=== PATIENT | female | born 1955 | race Caucasian/White ===

== ENCOUNTER 2020-10-11 09:09 | Outpatient (REF) | payer OTHER, SELFPAY | END 2020-10-11 09:10 | disposition home or self-care (01) | LOC: HO.LAB 09:09 | PROVIDERS: Visit Provider Internal Medicine | DX: Z20.822 Contact with and (suspected) exposure to COVID-19 (principal) | CPT/HCPCS: 36415; C9803; U0003; U0005 ==

== ENCOUNTER 2022-10-09 09:16 | Outpatient (REF) | payer MEDICARE, SELFPAY ==
--- NOTE | ~2022-10-09 | XR_ITS ---
EXAMINATION: XR CHEST CLINICAL INFORMATION: Cough for 6 weeks. Rule out pneumonia. COMPARISON: 09/04/2013. TECHNIQUE: 2 views of the chest were obtained. FINDINGS: No significant abnormality is noted involving the heart, lungs, mediastinum, or soft tissues. Mild thoracic levocurvature. No change in probable bone island or calcified granuloma projecting over the lung bases posteriorly. XR/XR chest 2V IMPRESSION: Unremarkable examination.
== END 2022-10-09 09:17 | disposition home or self-care (01) ==
LOC: HO.XRAY 09:16
PROVIDERS: PCP Internal Medicine; Visit Provider Internal Medicine
DX: R05.9 Cough, unspecified (principal)
CPT/HCPCS: 71046

== ENCOUNTER 2023-05-10 10:50 | Outpatient (AMB) | payer MEDICARE, SELFPAY ==
--- NOTE | 2023-05-10 11:00 | AM.OFFWIN_ITS ---
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 cloudy ur ine, odor, urge to urinate often. Allergies No Known Allergies Allergy (Verified 05/10/23 11:10) Do you need a note to return to daycare/school/sports/work: No HPI HPI Comments History of Present Illness Details 67-year-old female presents for concern of UTI. Experiencing increased frequency cloudiness in order to urine denies fevers chills or back pain Review of Systems Const All systems reviewed & are unremarkable except as noted in HPI and below Details: Cloudy urine, ordered urine Reports urinary urgency Physical Exam Vital Signs: Last Vital Signs Pulse 74 05/10/23 11:09 BP 124/80 05/10/23 11:09 Pulse Ox 99 05/10/23 11:09 Oxygen Delivery Method Room Air 05/10/23 11:09 BMI result Body Mass Index 29.2 GI Inspection: Yes normal to inspection Palpation (GI): Soft to palpation and nontender General: Yes no CVA tenderness Back/Spine/Pelvis Back: no CVA tenderness Results AMB Urinalysis, Automated UA Leukoctes 70 Verito/uL Last Edit by RAJIV Cool on 05/10/23 11:1 8 UA Nitrite Negative Last Edit by RAJIV Cool on 05/10/23 11:18 UA Urobilinogen 0.2 mg/dL Last Edit by RAJIV Cool on 05/10/23 11:18 UA Protein 0 mg/dL Last Edit by RAJIV Cool on 05/10/23 11:18 UA pH 5.5 Last Edit by RAJIV Cool on 05/10/23 11:18 UA Blood 25 Per/uL Last Edit by RAJIV Cool on 05/10/23 11:18 UA Specific Laurel 1.015 Last Edit by RAJIV Cool on 05/10/23 11:18 UA Ketone Negative Last Edit by RAJIV Cool on 05/10/23 11:18 UA Bilirubin 0 mg/dL Last Edit by RAJIV Cool on 05/10/23 11:18 UA Glucose 0 mg/dL Last Edit by RAJIV Cool on 05/10/23 11:18 Assessment & Plan Assessment & Plan (1) UTI (urinary tract infection): Code(s): N39.0 - Urinary tract infection, site not specified Qualifiers: Urinary tract infection type: acute cystitis Hematuria presence: without hematuria Qualified Code(s): N30.00 - Acute cystitis without hematuria Plan: Signs and symptoms consistent UTI urinalysis shows 1+ leuks and 1+ blood will treat with Keflex. No CVA tenderness abdominal tenderness on exam. Discharge instructions, follow up and treatment are discussed with patient in my usual fashion. Alternatives in treatment are also discussed. The patient will return for worsening symptoms or as needed. Advised that any labs/imaging ordered will be followed up on and contact made if further treatment needed. Counseled that patient's condition may require further evaluation and/or treatment. Symptoms of concern for worsening disorder discussed in detail in my customary manner. Patient does verbalize understanding of the plan, there are no apparent barriers to communication. The patient is given the opportunity to ask questions and have them answered to his/her satisfaction Medications: New cephalexin 500 mg PO BID 10 caps 0RF 5 days Patient Instructions: You was seen and evaluated in the urgent care for UTI symptoms. Urinalysis was performed and was consistent with urinary tract infection. Prescribed an antibiotic please take as directed. Please return to the emergency department her urgent care if you experience any new or worsening symptoms such as fever, back pain, worsening urinary symptoms, any concerns of assignments above. Coding Level of Care Code New Pt Level 4 (39270) Diagnoses Acute cystitis without hematuria N30.00 Urinary tract infection type: acute cystitis Hematuria presence: without hematuria
[2023-05-10 11:09] VITALS: BP 124/80; PULSE 74; O2SAT 99; BMI 29.2
== END 2023-05-10 11:19 | disposition home or self-care (01) ==
PROVIDERS: PCP Internal Medicine; Visit Provider Physician Assistant
DX: N30.00 Acute cystitis without hematuria (principal); R35.0 Frequency of micturition
CPT/HCPCS: 81003; 99204

== ENCOUNTER 2023-09-04 09:15 | Outpatient (AMB) | payer MEDICARE, SELFPAY ==
[2023-09-04 10:14] VITALS: BP 128/76; PULSE 76; TEMP 36.6; O2SAT 96; BMI 29.5
--- NOTE | 2023-09-04 10:14 | MHC.OFFWIV ---
Intake Vital Signs 09/04/23 10:14 Height 5 ft 4 in Weight 172 lb BMI 29.5 BP 128/76 Blood Pressure Location Lt brachial Position Sitting Pulse 76 Pulse Source Pulse Oximeter Temp 97.9 F Temp Source Oral Pulse Oximetry (%) 96 Oxygen Delivery Method Room Air Intake Visit Reasons: EP cough congestion sinus pain [id number] Intake Note: pt is here for c.o cough, congestion, and possible sinus infection since sundays Patient Tobacco Use Status: Never used Tobacco Allergies No Known Allergies Allergy (Verified 09/04/23 10:15) Do you need a note to return to daycare/school/sports/work: Yes HPI HPI Comments History of Present Illness Details This is a 67-year-old female with past medical history of gastroesophageal reflux disease, hypertension hyperlipidemia presenting for evaluation of sinus pain and facial pain that she has had since Sunday. Patient denies having any fevers, chills, ear pain, difficulty swallowing, dental pain, cough or shortness of breath. Patient has taken Tylenol only without relief of her discomfort. [facility] Social History Patient Tobacco Use Status: Never used Tobacco Review of Systems Const All systems reviewed & are unremarkable except as noted in HPI and below Reports as per HPI Eyes Reports no additional complaints ENT Reports no additional complaints, Denies dental pain, Reports facial pain, Denies mouth pain, Denies nasal congestion, Reports sinus pressure and Denies sore throat Card Reports no additional complaints Resp Reports no additional complaints GI Reports no additional complaints Musc Reports no additional complaints Skin/Breast Reports system reviewed and no additional complaints, except as documented Neuro Reports no additional complaints Physical Exam Vital Signs: afebrile Const General: cooperative, healthy appearing, comfortable and no acute distress Nutritional Appearance: average body habitus Orientation/consciousness: patient oriented x3 Limitations: no limitations HEENT Head: Yes normal to inspection Ears: hearing grossly normal bilaterally, external ears normal, right TM abnormal (bulging without erythema), TM normal on the left and EAC's normal General nose exam: Normal external nose present Face and sinus: Yes normal facial exam, Yes sinuses nontender, No erythema, No edema, No sinus tenderness and No Facial tenderness on exam of face and sinuses Mouth: Normal oral and palatal mucosa present and moist mucous membranes Throat: Yes posterior oropharynx normal (There is no edema, erythema or exudates of the posterior oropharynx) and No postnasal drainage Eyes Alignment and Position: alignment normal Periorbital: periorbital findings normal Eyelids: Yes eyelids normal Conjunctivae: conjunctivae normal Sclerae: sclerae normal Corneas: corneas normal Pupils: Equal, round and reactive pupils present EOM: EOMs intact bilaterally Neck Lymphatic: no lymphadenopathy noted Resp Effort & Inspection: normal respiratory effort, able to speak in complete sentences and normal respiratory pattern Auscultation: clear to auscultation bilaterally Cardio Rate: regular rate Rhythm: regular rhythm Skin General skin exam: no rashes or lesions noted Neuro General: patient oriented x3 Cranial nerves: Yes Equal, round and reactive pupils present Psych Appearance: grossly normal Mental Status: mental status grossly normal Insight: Good insight present (Psych) Judgement: Good judgement present (Psych) Assessment & Plan Assessment & Plan (1) Acute sinusitis: Comment: Patient seen and evaluated. There is no overt facial pain noted on examination patient is afebrile at this time without taking any antipyretic medications this morning. Code(s): J01.90 - Acute sinusitis, unspecified Plan: Ibuprofen or Aleve OTC as needed and nasal sinus spray/Neti pot as tolerated. Coding Level of Care Code New Pt Level 3 (94637) Diagnoses Acute sinusitis J01.90 Time Spent (min) 20
== END 2023-09-04 10:43 | disposition home or self-care (01) ==
PROVIDERS: PCP Internal Medicine; Visit Provider Physician Assistant
DX: J01.90 Acute sinusitis, unspecified (principal)
CPT/HCPCS: 99203

== ENCOUNTER 2024-11-17 09:10 | Outpatient (REF) | payer MEDICARE, SELFPAY ==
--- OUTSIDE RECORDS SUMMARY | 2024-11-17 12:43 | XMS_ITS | Clinical Summary ---
Author Organization [facility] [place] [address] Phone Care Team Providers Care Dewaterer Operator Name Role Phone Roger Duran MD Primary Care Provider [phone] Surgical History Surgery Date Site/Laterality Comments MASTECTOMY [...] 06/10/2025 10:30 AM EDT Office Visit [facility] Hematology Oncology [address] [place] [address] Jacob De La Rosa MD [address] [place] [phone] Health Maintenance Due Date Last Done Comments [...] Name Priority Date/Time Associated Diagnosis Comments [facility] DEXA AXIAL SKELETON Routine 08/25/2022 10:12 AM EST Encounter for screening for osteoporosis from Last 3 Months or Most Recently Relevant to Health Maintenance Results * [facility] DEXA AXIAL SKELETON (08/25/2022 10:12 AM EST) Anatomical Region Laterality Modality Mammography 08/25/2022 8:59 AM EST Narrative 08/25/2022 10:[address] [facility] Diagnostic Imaging Department [address] [place] [address] Patient: ??VAL IGLESIAS ?/Age/Sex: 1955 - 66 - Unit#: ??[id number] ? Location/Status: ??SPDIMAM/REG CLI ? Mnemonic/Ordering Site: ??MAMDEXAAX/SPMAM Ordering Physician: ??LEV DELGADO MD [facility] Dexa Axial Skeleton - 08/25/[address] HISTORY: ??The [...] probability of hip fracture of 2.3%. Code 52784 Dictating Physician: ??ART CARMONA MD Electronically Signed by: ??ART CARMONA MD Dic Date/Time: ??08/25/22 1011 Sign date/Time: ??08/25/22 1012 Procedure Note Art Carmona MD - 09/14/2023 [facility] Diagnostic Imaging Department [address] [place] [address] Patient: JULIUSVAL RIVERA Denise PerezB./Age/Sex: 1955 - 66 - F Unit#: [id number] Location/Status: [facility] CLI Mnemonic[facility] Ordering Physician: LEV DELGADO MD Wendy Dexa [...] density of the femurs bilaterally is 0.874 gm/ay5lnfcc is 87% of that of young normals [...] probability of hip fracture of 2.3%. Code 42935 Dictating Physician: ART CARMONA MD Electronically Signed by: ART CARMONA MD Dic Date/Time: 08/25/22 1011 Sign date/Time: 08/25/22 1012 Lev Delgado MD IMG BI PROCEDURES Final Resu lt from Last 3 Months or Most Recently Relevant to Health Maintenance Insurance [employer] [place] [employer] Care Teams Dewaterer Operator Relationship Specialty Start Date End Date Roger Duran MD [address] [facility] [place] PCP - General Internal Medicine 01/15/18
--- OUTSIDE RECORDS SUMMARY | 2024-11-17 12:43 | XMS_ITS | Encounter Summary ---
Author Organization [facility] Address [address] [place] [address] Care Team Providers Care Assistant Director Of Financial Aid Name Role Phone Roger Duran MD Primary Care Provider [phone] Encounter Details Date Type Department Care Team (Late st Contact Info) Description 06/10/2024 10:30 AM EDT Hospital Encounter TH H[facility]ORIC ENCOUNTERS [facility] ONLY Jacob De La Rosa MD [address] [place] [phone] Social History Tobacco Use Types Packs/Day [...] stage II T2N0 invasive ductal breast cancer, [place]-positive/[place]-negative/Her2-negative, diagnosed in 2006. She underwent mastectomy. She [...] revealed a grade 3 invasive ductal carcinoma, [place]-positive/[place]-negative, Her2-negative. On 10/08/2006, she underwent a right [...] denied new medications. She was seen by [facility]. A biopsy reportedly was non-diagnostic. A topical steroid provided relief. She went to [place] to see a power truck driver for a second opinion and they recommended [...] lessened considerably. The rash resolved following her residential. She is off Zyrtec. She developed a [...] . 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 She is active and exercises at the [employer]. Review of systems: The remainder of a [...] stage II T2N0 invasive ductal breast cancer, [place]-positive/[place]-negative/Her2-negative. She underwent mastectomy. She completed adjuvant chemotherapy [...] relieved by prednisone. Repeat patch testing in [place] in 2015 showed multiple work-related chemical allergies and she has avoided exposure by minimizing scrubbing. The rash resolved after residential. She is compliant with self exams and left MMGs. There is no strong clinical evidence of recurrent breast cancer. She has osteopenia and takes calcium and vitamin D supplementation. documented in this encounter Plan of Treatment Upcoming Encounters Date Type Department Care Team (Late st Contact Info) Description 06/10/2025 10:30 AM EDT Office Visit [facility] Hematology Oncology [address] [place] [phone] Jacob De La Rosa MD [address] [place] [address] documented as of this encounter Visit Diagnoses Not on filedocumented in this encounter Care Teams Assistant Director Of Financial Aid Relationship Specialty Start Date End Date Roger Duran MD [address] [place] [address] PCP - General Internal Medicine 01/15/18 documented as of this encounter
--- OUTSIDE RECORDS SUMMARY | 2024-11-17 12:43 | XMS_ITS | Clinical Summary ---
Author Organization [facility] Address [address] [place] [address] Care Team Providers Care Resaw Feeder Name Role Phone Roger Duran MD Primary Care Provider [phone] Allergies No known active allergies Medications Medication [...] age to complete this topic Care Teams Resaw Feeder Relationship Specialty Start Date End Date Roger Duran MD [address] [place] [address] PCP - General Internal Medicine 01/10/18
[2024-11-17 13:45] LABS: Appearance Urine Cloudy; Color Urine Yellow; Glucose Urine UA Negative (Negative); Leukocyte Esterase Urine Moderate (2+) (Negative); Nitrite Urine Positive (Negative); PH 5.5 (5.0-9.0); Specific Gravity - Urine 1.025 (1.005-1.025); UMIC TRIGGER UACC YES; Urine Blood Moderate (2+) (Negative); Urine Ketones Negative (Negative); Urine Protein 30 (1+) mg/dL (Neg-Trace)
[2024-11-17 13:49] LABS: Bacteria Urine 4+ (None Seen); Hyaline Casts Urine 0-2 /LPF (0-2); RBC Urine >20 /HPF (0-2); Squamous Epithelial Cell Urine 0-2 /HPF (0-2); UACC Culture Trigger YES; WBC Urine >50 /HPF (0-5)
== END 2024-11-17 09:11 | disposition home or self-care (01) ==
LOC: HO.LAB 09:10
PROVIDERS: Nurse Practitioner Family; PCP Internal Medicine
DX: N30.90 Cystitis, unspecified without hematuria (principal)
CPT/HCPCS: 81001; 81003; 87086; 87088; 87186; 99212

== ENCOUNTER 2024-11-17 09:10 | Outpatient (AMB) | payer MEDICARE, SELFPAY ==
--- OUTSIDE RECORDS SUMMARY | 2024-11-17 10:10 | XMS_ITS | Clinical Summary ---
Author Organization [facility] [place] [place] [address] Phone Care Team Providers Care Retail Wireless Sales Representative Name Role Phone Roger Duran MD Primary Care Provider [phone] Surgical History Surgery Date Site/Laterality Comments MASTECTOMY PROCEDURE:MASTECTOMY TONSILLECTOMY PROCEDURE:TONSILLECTOMY Medical History Medical History Date Comments Breast cancer DX:Breast cancer (HCC) High blood pressure DX:High bloo d pressure Social History Tobacco Use Types Packs/Day Years Used Date Smoking Tobacco: Never Smokeless Tobacco: Never Alcohol Use Standard Drinks/Week Comments Yes 0 (1 standard drink = 0.6 oz pur e alcohol) Comments Unknown Sex and Gender Information Value Date Recorded Sex Assigned at Not on file Legal Sex Female 8:48 AM EST Gender Identity Not on file Sexual Orientation Not on file Obstetrics History Last Filed Vital Signs Vital Sign Reading [...] Mass Index 29.29 10/20/2021 10:30 AM EST Plan of Treatment Upcoming Encounters Date Type Department Care Team (Late st Contact Info) Description 06/10/2025 10:30 AM EDT Office Visit [facility] Hematology Oncology [address] [place] [address] Jacob De La Rosa MD [address] [place] [phone] Health Maintenance Due Date Last Done Comments Breast Cancer Screening 1955 COVID-19 Vaccine (#1) 1961 DTaP,Tdap,and Td Vaccines (1 - Tdap) 11/02/1975 Pneumococcal Vaccine: 50+ Ye ars (1 of 2 - PCV) 11/02/1975 Zoster Vaccines (1 of 2) 11/02/1975 Colorectal Cancer Screening: Colonoscopy 07/20/2022 Depression Screening 07/20/2022 Falls Risk Assessment 07/20/2022 Hepatitis C Screening 07/20/2022 Medicare Annual Wellness Visit 07/20/2022 Social Influencers of Health Screening 07/20/2022 Influenza Vaccine (#1) 2024 RSV Immunization Adult Patie nts (1 - 1-dose 75+ series) 11/02/2031 Osteoporosis Screening (Bone Density Screening) 08/25/2032 08/25/2022 HIB Vaccines Aged Out No longer eligi ble based on patient's age to complete this topic HPV Vaccines Aged Out No longer eligi ble based on patient's age to complete this topic Hepatitis A Vaccines Aged Out No long er eligible based on patient's age to complete this topic Hepatitis B Vaccines Aged Out No long er eligible based on patient's age to complete this topic IPV Vaccines Aged Out No longer eligi ble based on patient's age to complete this topic MMR Vaccines Aged Out No longer eligi ble based on patient's age to complete this topic Meningococcal ACWY Vaccine Aged Out N o longer eligible based on patient's age to complete this topic Meningococcal B Vacine Aged Out No lo nger eligible based on patient's age to complete this topic RSV Immunization Patients Un nakia 20 months Aged Out No longer eligible b ased on patient's age to complete this topic Varicella Vaccines Aged Out No longer eligible based on patient's age to complete this topic Procedures Procedure Name Priority Date/Time Associated Diagnosis Comments [facility] DEXA AXIAL SKELETON Routine 08/25/2022 10:12 AM EST Encounter for screening for osteoporosis from Last 3 Months or Most Recently Relevant to Health Maintenance Results * [facility] DEXA AXIAL SKELETON (08/25/2022 10:12 AM EST) Anatomical Region Laterality Modality Mammography 08/25/2022 8:59 AM EST Narrative 08/25/2022 10:12 AM EST [facility] Diagnostic Imaging Department [address] [place] [address] Patient: ??VAL IGLESIAS ?/Age/Sex: 1955 - 66 - Unit#: ??[id number] ? Location/Status: ??SPDIMAM/REG CLI ? Mnemonic/Ordering Site: ??MAMDEXAAX/SPMAM Ordering Physician: ??LEV DELGADO MD [facility] Dexa Axial Skeleton - 08/25/22950 HISTORY: ??The patient is a 66-year-old postmenopausal female with clinical concern for metabolic bone disease. FINDINGS: ??Dual energy x-ray absorptiometry of the lumbar spine and femurs is performed. The mean bone mineral density at L1-L4 is 0.941 gm/cm2 which is 80% of that of young normals and 94% of that of age matched controls. This yields a T-score of -2.0 and a Z-score of -0.5 which is diagnostic of osteopenia. The mean bone mineral density of the femurs bilaterally is 0.874 gm/cm2 which is 87% of that of young normals and 101% of that of age matched controls. ??This yields a T-score of -1.1 and a Z-score of 0.1 which is diagnostic of osteopenia. The T-score of the right femoral neck is -1.8 and that of the left femoral neck is -1.8 which is diagnostic of osteopenia. IMPRESSION: 1. Osteopenia. ??There has been an increase of 4.1% in bone mineral density in the lumbar spine since the prior examination of 05/11/2016. ??There has been a decrease of 1.9% in bone mineral density in the right femur and a decrease of 1.5% in bone mineral density in the left femur. 2. FRAX analysis yields a 10-year probability of major osteoporotic fracture of 16.4% and a 10-year probability of hip fracture of 2.3%. Code 54575 Dictating Physician: ??ART CARMONA MD Electronically Signed by: ??ART CARMONA MD Dic Date/Time: ??08/25/22 1011 Sign date/Time: ??08/25/22 1012 Procedure Note Art Carmona MD - 09/14/2023 [facility] Diagnostic Imaging Department [address] [place] [address] Patient: JULIUSVAL RIVERA Denise PerezB./Age/Sex: 1955 - 66 - F Unit#: [id number] Location/Status: [facility] CLI [facility] Ordering Physician: LEV DELGADO MD [facility] Dexa Axial Skeleton - 08/25/22950 HISTORY: The patient is a 66-year-old postmenopausal female withclinical concern for metabolic bone disease. FINDINGS: Dual energy x-ray absorptiometry of the lumbar spine and femursis performed. The mean bone mineral density at L1-L4 is 0.941 gm/cm2 which is80% of that of young normals and 94% of that of age matched controls. Thisyields a T-score of -2.0 and a Z-score of -0.5 which is diagnostic of osteopenia. The mean bone mineral density of the femurs bilaterally is 0.874 gm/kf1ezsve is 87% of that of young normals and 101% of that of age matched controls.This yields a T-score of -1.1 and a Z-score of 0.1 which is diagnostic ofosteopenia. The T-score of the right femoral neck is -1.8 and that of the left femoralneck is -1.8 which is diagnostic of osteopenia. IMPRESSION: 1. Osteopenia. There has been an increase of 4.1% in bone mineral densityin the lumbar spine since the prior examination of 05/11/2016. There has marnie decrease of 1.9% in bone mineral density in the right femur and a decreaseof 1.5% in bone mineral density in the left femur. 2. FRAX analysis yields a 10-year probability of major osteoporoticfracture of 16.4% and a 10-year probability of hip fracture of 2.3%. Code 52890 Dictating Physician: ART CARMONA MD Electronically Signed by: ART CARMONA MD Dic Date/Time: 08/25/22 1011 Sign date/Time: 08/25/22 1012 Lev Delgado MD IMG BI PROCEDURES Final Resu lt from Last 3 Months or Most Recently Relevant to Health Maintenance Insurance [employer] [place] [employer] Care Teams Retail Wireless Sales Representative Relationship Specialty Start Date End Date Roger Duran MD [address] [facility] [place] PCP - General Internal Medicine 01/15/18
--- OUTSIDE RECORDS SUMMARY | 2024-11-17 10:10 | XMS_ITS | Encounter Summary ---
Author Organization [facility] Address [address] [place] [address] Care Team Providers Care Construction Plant Operator Name Role Phone Roger Duran MD Primary Care Provider [phone] Encounter Details Date Type Department Care Team (Late st Contact Info) Description 06/10/2024 10:30 AM EDT Hospital Encounter TH HISTORIC ENCOUNTERS [facility] ONLY Jacob De La Rosa MD [address] [place] [phone] Social History Tobacco Use Types Packs/Day [...] stage II T2N0 invasive ductal breast cancer, [place]-positive/[place]-negative/Her2-negative, diagnosed in 2006. She underwent mastectomy. She [...] revealed a grade 3 invasive ductal carcinoma, ER-positive/[place]-negative, Her2-negative. On 10/08/2006, she underwent a right [...] denied new medications. She was seen by [facility]. A biopsy reportedly was non-diagnostic. A topical steroid provided relief. She went to [place] to see a fountain server for a second opinion and they recommended [...] lessened considerably. The rash resolved following her intermediate. She is off Zyrtec. She developed a [...] . 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 She is active and exercises at the [employer]. Review of systems: The remainder of a [...] stage II T2N0 invasive ductal breast cancer, ER-positive/[place]-negative/Her2-negative. She underwent mastectomy. She completed adjuvant chemotherapy [...] relieved by prednisone. Repeat patch testing in [place] in 2015 showed multiple work-related chemical allergies and she has avoided exposure by minimizing scrubbing. The rash resolved after intermediate. She is compliant with self exams and left MMGs. There is no strong clinical evidence of recurrent breast cancer. She has osteopenia and takes calcium and vitamin D supplementation. documented in this encounter Plan of Treatment Upcoming Encounters Date Type Department Care Team (Late st Contact Info) Description 06/10/2025 10:30 AM EDT Office Visit [facility] Hematology Oncology [address] [place] [phone] Jacob De La Rosa MD [address] [place] [address] documented as of this encounter Visit Diagnoses Not on filedocumented in this encounter Care Teams Construction Plant Operator Relationship Specialty Start Date End Date Roger Duran MD [address] [place] [address] PCP - General Internal Medicine 01/15/18 documented as of this encounter
--- OUTSIDE RECORDS SUMMARY | 2024-11-17 10:10 | XMS_ITS | Clinical Summary ---
Author Organization [facility] Address [address] [place] [address] Care Team Providers Care Logistics Tech Name Role Phone Roger Duran MD Primary Care Provider [phone] Allergies No known active allergies Medications Medication Sig Dispensed Refills Start Date End Date Status omeprazole (PRILOSEC) 20 MG capsule Take 1 capsule (20 mg total) by mouth daily. 0 Active venlafaxine (EFFEXOR) 75 MG tablet Take 1 tablet (75 mg total) by mouth 2 (two) times a day. 0 Active atenolol (TENORMIN) tablet 50 mg Take 1 tablet (50 mg total) by mouth daily. 0 Active simvastatin (ZOCOR) 80 MG tablet Take 1 tablet (80 mg total) by mouth every night at bedtime. 0 Active rosuvastatin (CRESTOR) tablet 40 mg Take 1 tablet (40 mg total) by mouth daily. 0 08/15/2021 Active Active Problems Problem Noted Date Diagnosed Date Malignant neoplasm of centra l portion of right breast in female, estrogen receptor positive 01/11/2018 Social History Tobacco Use Types Packs/Day Years Used Date Smoking Tobacco: Never Smokeless Tobacco: Never Alcohol Use Standard Drinks/Week Comments Yes 0 (1 standard drink = 0.6 oz pur e alcohol) Sex and Gender Information Value Date Recorded Sex Assigned at Not on file Gender Identity Not on file Sexual Orientation Not on file Job Start Date Occupation Industry Not on file Not on file Not on file Last Filed Vital Signs Vital Sign Reading Time Taken Comments Blood Pressure 160/87 06/10/2024 11:01 AM EDT Pulse 64 06/10/2024 11:01 AM EDT Temperature 36.4 ??C (97.6 ??F) 06/10/2024 11:01 AM E DT Respiratory Rate - - Oxygen Saturation 100% 06/10/2024 11:01 AM EDT Inhaled Oxygen Concentration - - Weight 70.3 kg (155 lb) 06/10/2024 11:01 AM EDT Height 154.9 cm (5' 1 ) 10/20/2021 10:30 AM EST Body Mass Index 29.29 10/20/2021 10:30 AM EST Plan of Treatment Health Maintenance Due Date Last Done Comments Hepatitis C Screening 1955 COVID-19 Vaccine (#1) 1961 Pneumococcal Vaccine (1 of 2 - PCV) 1962 Depression Screening 1968 BMI Counseling 1974 Preventative Health Evaluation 1974 DTap / Tdap / Td (1 - Tdap) 11/02/1975 Shingrix-Zoster Vaccine (1 of 2) 11/02/1975 Colon Cancer Screening (Colonoscopy) 2001 Breast Cancer Screening (Mammogram) 2006 Fall Risk Assessment 2021 Osteoporosis Screening (DEXA Scan) 2021 Influenza Vaccine (#1) 2024 RSV Adult > 60+ Yrs or Pregn ant (1 - 1-dose 75+ series) 11/02/2031 Hepatitis B Vaccines Aged Out No long er eligible based on patient's age to complete this topic RSV Ped < 20 months Aged Out No longe r eligible based on patient's age to complete this topic Care Teams Logistics Tech Relationship Specialty Start Date End Date Roger Duran MD [address] [place] [address] PCP - General Internal Medicine 01/10/18
[2024-11-17 10:24] VITALS: BP 120/88; PULSE 80; TEMP 36.7; O2SAT 95
--- NOTE | 2024-11-17 10:24 | AM.OFFWIN_ITS ---
Intake Vital Signs 11/17/24 10:24 Weight 142 lb BP 120/88 Blood Pressure Location Rt brachial Position Sitting Pulse 80 Pulse Source Pulse Oximeter Temp 98.1 F Temp Source Oral Pulse Oximetry (%) 95 Oxygen Delivery Method Room Air Intake Visit Reasons: EP UTI? Intake Note: Patient here for frequent urination, foul odor, cloudy urine that started last week. Patient Tobacco Use Status: Never used Tobacco Allergies No Known Allergies Allergy (Verified 11/17/24 10:30) Do you need a note to return to daycare/school/sports/work: No HPI HPI Comments History of Present Illness Details 69 y/o female patient who presents to [facility] in clinic with c/o Urinary symptoms. C/o Urinary Urgency, Dysuria and frequency for ~ 1 week. [facility] Medical History (Updated 11/17/24 @ 10:45 by Marina Moreno NP) Cystitis Social History Patient Tobacco Use Status: Never used Tobacco Review of Systems Const All systems reviewed & are unremarkable except as noted in HPI and below Physical Exam Vital Signs: Last Vital Signs Temp 98.1 F 11/17/24 10:24 Pulse 80 11/17/24 10:24 BP 120/88 11/17/24 10:24 Pulse Ox 95 11/17/24 10:24 Oxygen Delivery Method Room Air 11/17/24 10:24 Const General: no acute distress Nutritional Appearance: well nourished Orientation/consciousness: patient oriented x3 Other: Pelvic exam deferred. General: Yes no CVA tenderness Back/Spine/Pelvis Back: no CVA tenderness Neuro General: patient oriented x3, gait normal and moves all extremities Psych Speech and movement: Normal speech and movement present Results AMB Urinalysis, Automated UA Leukoctes 70 Verito/uL Last Edit by RAJIV Cool on 11/17/24 11:0 7 UA Nitrite Positive Last Edit by RAJIV Cool on 11/17/24 11:07 UA Urobilinogen 0.2 mg/dL Last Edit by RAJIV Cool on 11/17/24 11:07 UA Protein 30 mg/dL Last Edit by RAJIV Cool on 11/17/24 11:07 UA pH 6.0 Last Edit by RAJIV Cool on 11/17/24 11:07 UA Blood 200 Per/uL Last Edit by Zac Hayward CCM on 11/17/24 11:07 UA Specific [place] 1.025 Last Edit by Zac Hayward CCM on 11/17/24 11:07 UA Ketone Negative Last Edit by Zac Hayward [facility] on 11/17/24 11:07 UA Bilirubin 0 mg/dL Last Edit by [facility]ac Hayward [facility] on 11/17/24 11:07 UA Glucose 0 mg/dL Last Edit by Zac Hayward [facility] on 11/17/24 11:07 Results Reviewed Results Reviewed: Laboratory Last Values Urine pH (Auto) 6.0 11/17/24 11:06 Specific [place] (Auto) 1.025 11/17/24 11:06 Urine Protein (Auto) 30 mg/dL 11/17/24 11:06 Glucose (UA)(Auto) 0 mg/dL 11/17/24 11:06 Urine Ketones (Auto) Negative 11/17/24 11:06 Urine Blood (Auto) 200 Per/uL 11/17/24 11:06 Urine Nitrite (Auto) Positive 11/17/24 11:06 Urine Bilirubin (Auto) 0 mg/dL 11/17/24 11:06 Urine Urobilinogen (Auto) 0.2 mg/dL 11/17/24 11:06 Leukocyte Esterase (Auto) 70 Verito/uL 11/17/24 11:06 Assessment & Plan Assessment & Plan (1) Cystitis: Code(s): N30.90 - Cystitis, unspecified without hematuria Plan: Ordered Urinalysis and Urine Culture Ordered Ciprofloxacin 500 mg BID Hydrate well with plenty of fluids. May Take Azo for symptom relief. Orders: Orders UA CC w/rflx Micro + Cult Today N30.90 - Cystitis, unspecified without hematuria AMB Urinalysis Automated Today Z13.9 - Encounter for screening, unspecified Medications: New ciprofloxacin HCl 500 mg PO Q12H 10 tabs 0RF 5 days N30.90 - Cystitis, unspecified without hematuria Coding Level of Care Code Est Pt Level 4 (99599) Diagnoses Cystitis N30.90 Time Spent (min) 20
== END 2024-11-17 10:55 | disposition home or self-care (01) ==
PROVIDERS: PCP Internal Medicine; Visit Provider Nurse Practitioner Family
DX: N30.90 Cystitis, unspecified without hematuria (principal); Z13.9 Encounter for screening, unspecified

== ENCOUNTER 2025-06-15 09:29 | Outpatient (AMB) | payer MEDICARE, SELFPAY ==
--- OUTSIDE RECORDS SUMMARY | 2024-06-10 09:30 | XMS_ITS | Encounter Summary ---
Author Organization [facility] Address [address] [place] [address] Care Team Providers Care Career Development Coordinator/Teacher Name Role Phone Roger Duran MD Primary Care Provider [phone] Encounter Details Date Type Department Care Team (Late st Contact Info) Description 06/10/2024 10:30 AM EDT Hospital Encounter [facility] ONLY Jacob De La Rosa MD [address] [place] [phone] Social History Tobacco Use Types Packs/Day Years Used Date Smoking Tobacco: Never Smokeless Tobacco: Never Alcohol Use Standard Drinks/Week Comments Yes 0 (1 standard drink = 0.6 oz pur e alcohol) Comments Unknown Sex and Gender Information Value Date Recorded Sex Assigned at Not on file Legal Sex Female 8:48 AM EST Gender Identity Not on file Sexual Orientation Not on file documented as of this encounter Last Filed Vital Signs Vital Sign Reading Time Taken Comments Blood Pressure 160/87 06/10/2024 11:01 AM EDT Sitting Left arm Pulse 64 06/10/2024 11:01 AM EDT Temperature - - Respiratory Rate - - Oxygen Saturation - - Inhaled Oxygen Concentration - - Weight 70.3 kg (155 lb) 06/10/2024 11:0 1 AM EDT Height 154.9 cm (5' 1 ) 10/20/2021 10:3 0 AM EST Body Mass Index 29.29 10/20/2021 10:30 AM EST documented in this encounter Progress Notes * Jacob De La Rosa MD - 06/10/2024 10:45 AM EDT Diagnosis/treatment: Right-sided stage II T2N0 invasive ductal breast cancer, ER-positive/NV-negative/Her2-negative, diagnosed in 2006. She underwent mastectomy. She completed adjuvant chemotherapy with TC x 3 cycles andAC x 1 cycle. She started adjuvant tamoxifen in 02/2007 and completed 5 years. She started letrozolein 03/2012 and completed 5 years. Interval history: The patient is a 68 year old female who became aware of a nonpainful mass in the right breast. She underwent a MMG which showed a 3 cm mass in the retroareolar area on the right. On 08/29/2006, she underwent a core biopsy which revealed a grade 3 invasive ductal carcinoma, ER-positive/NV-negative, Her2-negative. On 10/08/2006, she underwent a right MRM and immediate reconstruction. The pathology showed a 3.0 cm grade 3 invasive ductal carcinoma with no LVI. All eight nodes were negative. She completed TC x 3 cycles. She was changed to AC for a 4th cycle of adjuvant chemotherapy becauseof an allergic reaction. She started tamoxifen in 02/2007. She was started on Effexor for hot flashes. She tolerated tamoxifen reasonably well despite hot flashes. She has not had menses since completing chemotherapy. She tested post-menopausal by labs in 12/2011. She tolerated letrozole reasonably well despite continued frequent hot flashes. She had disrupted sleep due to hot flashes. She remained on Effexor 75 mg, which provided benefit. She reports persistent daytime hot flashes despite no longer taking letrozole. The hot flashes lessened in frequency in 2018, worsened in 2019, but lessened again in late 2019. She remains on Effexor 75 mg. A DEXA scan in 04/2016 showed osteopenia with a T score of -2.3 in the femur. A DEXA scan in 08/2022 showed osteopenia with a T score of -2.0 in the L-spine. She takes calcium and vitamin D supplementation. She is compliant with self exams and has no concerns. She is compliant with MMGs and her last left MMG in 09/2023 was read as benign. She denies CALL, abdominal or bone pain, or a change in appetite or weight. She developed a pruritic papular rash on her forearms and hands in 03/2013. She reported that the lesions continued to appear and resolve. She denied new medications. She was seen by [facility]. A biopsy reportedly was non-diagnostic. A topical steroid provided relief. She went to [place] to see a rope tier for a second opinion and they recommended patch testing for chemicals used at work which was initially not revealing. She started methotrexate in mid-2014 and took it for 6 weeks without benefit. We held the letrozolex 1 months in 11/2014, but the rash persisted. She started Zyrtec in mid-02/2015 and the rash lessened. She had an exacerbation of the rash in 05/2015 and was started on prednisone with benefit. She was tapered off the prednisone. She underwent repeat patch testing for chemicals used at work in 2015 which showed multiple work chemical allergies. She has minimized scrubbing and gloving at work the rash lessened considerably. The rash resolved following her jail. She is off Zyrtec. She developed a cough in 08/2017. She developed an influenza infection in 09/2017. She subsequently developed a left otitis media, followed by left mastoiditis. She was treated with multiple courses ofantibiotics and prednisone. The cough was productive of abundant yellow sputum at one point; the sputum resolved following one of the courses of antibiotics. A CXR on 12/18/2017 was unremarkable. Thecough persisted but resolved in early 01/2018. . . The patient tested BRCA-1/2-negative. Family history: A sister had breast cancer at the age of 47. A paternal grandmother had breast cancer. Social history: . 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 She is active and exercises at the [employer]. Review of systems: The remainder of a 10 point review of systems was unremarkable. Physical examination: HEENT: Sclerae anicteric, normal oropharyngeal membrane. Neck: No lymphadenopathy. Lungs: Clear to auscultation. Heart: No murmurs. Breasts: No suspicious skin changes or masses bilaterally, no axillary lymphadenopathy bilaterally. Abdomen: Soft, nontender, no organomegaly or masses. Extremities: No edema. Skin: No rash. Neurologic: Normal gait. Assessment/plan: The patient is a 68 yo F who presented in 2006 with a right-sided stage II T2N0 invasive ductal breast cancer, ER-positive/NV-negative/Her2-negative. She underwent mastectomy. She completed adjuvant chemotherapy with TC x 3 cycles and AC x 1 cycle. She started adjuvant tamoxifen in 02/2007 and completed 5 years. We started extended adjuvant hormonal therapy with letrozole and the patient completed5 years. She had persistent difficulty with a rash on her forearms and hands. We held the letrozole x 1 month in 11/2014, but the rash persisted. The rash lessened on Zyrtec. She had an exacerbation in the rash in 05/2015, relieved by prednisone. Repeat patch testing in [place] in 2015 showed multiple work-related chemical allergies and she has avoided exposure by minimizing scrubbing. The rash resolved after jail. She is compliant with self exams and left MMGs. There is no strong clinical evidence of recurrent breast cancer. She has osteopenia and takes calcium and vitamin D supplementation. documented in this encounter Plan of Treatment Upcoming Encounters Date Type Department Care Team (Late st Contact Info) Description 06/10/2026 10:30 AM EDT Office Visit [facility] Hematology Oncology [address] [place] [phone] Jacob De La Rosa MD [address] [place] [phone] documented as of this encounter Visit Diagnoses Not on filedocumented in this encounter Care Teams Career Development Coordinator/Teacher Relationship Specialty Start Date End Date Roger Duran MD [address] [place] [address] PCP - General Internal Medicine 01/15/18 documented as of this encounter
--- OUTSIDE RECORDS SUMMARY | 2025-06-10 09:30 | XMS_ITS | Encounter Summary ---
Author Organization [facility] Address [address] [place] [address] Care Team Providers Care Paint Spraying Machine Operator Helper Name Role Phone Roger Duran MD Primary Care Provider [phone] Reason for Referral * Imaging (Routine) - Authorized Specialty Diagnoses / Procedures Referred By Florina t Referred To Contact Radiology Diagnoses Malignant neoplasm of central portion of right breast in female, estrogen receptor positive (CMS/HCC V24, CMS/HCC V28) Encounter for screening mammogram for malignant neoplasm of breast Procedures MG Mammo Digital Screening w Aguila Left Jacob De La Rosa MD [address] [place] [phone] Phone: tel: fax: [address] [phone] Phone: tel: Referral ID Status Reason Start Date Expiration Date V isits Requested Visits Authorized [id number] Authorized 06/10/2025 06/10/2026 1 1 Reason for Visit * Reason Comments Follow-up Encounter Details Date Type Department Care Team (Late st Contact Info) Description 06/10/2025 10:30 AM EDT Office Visit [facility] Hematology Oncology [address] [place] [phone] Jacob De La Rosa MD [address] [place] [phone] Malignant neoplasm of central portion of right breast in female, estrogen receptor positive (CMS/HCC V24, CMS/HCC V28) (Primary Dx); Encounter for screening mammogram for malignant neoplasm of breast Social History Tobacco Use Types Packs/Day Years Used Date Smoking Tobacco: Never Smokeless Tobacco: Never Tobacco Cessation:Counseling Given: Not Answered Alcohol Use Standard Drinks/Week Comments Yes 0 [...] Sign Reading Time Taken Comments Blood Pressure 123/95 06/10/2025 10:33 AM EDT Pulse 92 06/10/2025 10:33 AM EDT Temperature 36.3 C (97.4 F) 06/10/2025 10:33 AM EDT Respiratory Rate - - Oxygen Saturation 98% 06/10/2025 10:33 AM EDT Inhaled Oxygen Concentration - - Weight 64.9 kg (143 lb) 06/10/2025 10:33 AM EDT Height - - Body Mass Index 27.02 10/20/2021 10:30 AM EST documented in this encounter Progress Notes * Jacob De La Rosa MD - 06/10/2025 10:30 AM EDT Diagnosis/treatment: Right-sided stage II T2N0 invasive ductal breast cancer, ER-positive/TN-negative/Her2-negative, diagnosed in 2006. She underwent mastectomy. She completed adjuvant chemotherapy with TC x 3 cycles andAC x 1 cycle. She started adjuvant tamoxifen in 02/2007 and completed 5 years. She started letrozolein 03/2012 and completed 5 years. Interval history: The patient is a 69 year old female who became aware of a nonpainful mass in the right breast. She underwent a MMG which showed a 3 cm mass in the retroareolar area on the right. On 08/29/2006, she underwent a core biopsy which revealed a grade 3 invasive ductal carcinoma, ER-positive/TN-negative, Her2-negative. On 10/08/2006, she underwent a right [...] The hot flashes lessened in frequency in 2017, worsened in 2018, but lessened again in late 2018. She remains on Effexor 75 mg. A [...] denied new medications. She was seen by [facility]. A biopsy reportedly was non-diagnostic. A topical steroid provided relief. She went to [place] to see a endodontist for a second opinion and they recommended [...] lessened considerably. The rash resolved following her correction. She is off Zyrtec. She developed a [...] . 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 She is active and exercises at the [employer]. Review of systems: The remainder of a [...] Normal gait. Assessment/plan: The patient is a 69 yo F who presented in 2006 with a right-sided stage II T2N0 invasive ductal breast cancer, ER-positive/TN-negative/Her2-negative. She underwent mastectomy. She completed adjuvant chemotherapy [...] relieved by prednisone. Repeat patch testing in [place] in 2016 showed multiple work-related chemical allergies and she has avoided exposure by minimizing scrubbing. The rash resolved after correction. She is compliant with self exams and left MMGs. There is no strong clinical evidence of recurrent breast cancer. She has osteopenia and takes calcium and vitamin D supplementation. Visit summary: Patient is a 69-year-old female who presented to [place] [address] with a right-sized stage II breast cancer, ER-positive, HER2-negative. She underwent a mastectomy. She completed adjuvant chemotherapy withTC x 3 cycles and AC x 1 cycle. She started adjuvant tamoxifen 02/2007 and completed 5 years. We started extended adjuvant hormonal therapy letrozole and the patient completed 5 years. She is compliant with mammograms. A history and physical today revealed no new findings. documented in this encounter Plan of Treatment Upcoming Encounters Date Type Department Care Team (Late st Contact Info) Description 06/10/2026 10:30 AM EDT Office Visit [facility] Hematology Oncology [address] [place] [phone] Jacob De La Rosa MD [address] [place] [phone] Scheduled Orders Name Type Priority Associated Diagnoses Orde r Schedule MG Mammo Digital Screening w Aguila Left Imaging Routine Malignant neoplasm of central portion of right breast in female, estrogen receptor positive ([facility] V24, [facility] V28) Encounter for screening mammogram for malignant neoplasm of breast Expected: 10/09/2025, Expires: 06/10/2026 documented as of this encounter Visit Diagnoses Diagnosis Malignant neoplasm of central portion of right breast in female, estrogen receptor positive (CMS/[facility] V24, CMS/[facility] V28)- Primary Encounter for screening mammogram for malignant neoplasm of breast documented in this encounter Historical Medications * This list may reflect changes made after this encounter. atenoloL (TENORMIN) 50 mg tablet Take 1 tablet (50 mg total) by mouth 1 (one) time each day. doxycycline (VIBRAMYCIN) 100 mg capsule Take 1 capsule (100 mg total) by mouth 2 times daily. 06/07/2015 omeprazole (PriLOSEC) [address] capsule Take 1 capsule (20 mg total) by mouth 1 (one) time each day. added in this encounter Care Teams Paint Spraying Machine Operator Helper Relationship Specialty Start Date End Date Roger Duran MD [address] [place] [address] PCP - General Internal Medicine 01/15/18 documented as of this encounter
[2025-06-15 09:37] VITALS: BP 150/92; PULSE 79; RESP 18; TEMP 35.8; O2SAT 100; BMI 24.9
--- NOTE | 2025-06-15 09:37 | MHC.PC.OV ---
Vital Signs 06/15/25 09:37 Height 5 ft 4 in Weight 145 lb BMI 24.9 BP 150/92 H Blood Pressure Location Lt brachial Position Sitting Respiration 18 Pulse 79 Pulse Source Pulse Oximeter Temp 96.4 F L Temp Source Temporal Artery Scan Pulse Oximetry (%) 100 Oxygen Delivery Method Room Air Intake Visit Reasons: Request PE PROFESSOR OF ENGLISH - see comments Ssrs Developer Required: No Accompanied by: Self / Same As Patient Allergies No Known Allergies Allergy (Verified 06/15/25 09:53) Medication List - Last Reconciled 06/15/25 by MAURY Hutson atenolol 50 mg PO DAILY omeprazole 20 mg PO DAILY rosuvastatin 40 mg PO DAILY venlafaxine ER 75 mg PO DAILY Tobacco use date assessed: 06/15/25 Fall risk assessment: 1 Fall in past year Last assessed Fall Risk: 06/15/25 Dental Screening Dental Screen Date: 06/15/25 Did you have a dental visit in the last 12 months?: Yes Did you have a dental problem in the last 6 months where you did not have access to dental care?: No Was dental information given to patient?: Patient has dentist HPI Request PE PROFESSOR OF ENGLISH - see comments HPI Details Previous PCP: Dr. Duran Last visit:few months ago Last PE: same Specialist: oncologist OBGYN: Dr. Noonan affiliated with [facility] Every two years: done last year mammogram: update Past medical history: breast ca, 19 years ago, [facility] (Dr. De La Rosa) single mastectomy of right breast, chemo and has been in remission since, htn, hld, GERD Medications: Family HX: htn, hld -mother, Problem: The patient is a 69-year-old female establishing care with a new primary care provider following the shelter of her previous PCP, Dr. Duran, with whom she had her last physical a few months ago. She has a history of breast cancer diagnosed 19 years ago, treated with a right single mastectomy and chemotherapy, but no radiation. Genetic testing for the breast cancer gene was negative, and she has been in remission since. She sees an oncologist, Dr. De La Rosa, and had a visit last week. The patient has a 30-year history of hypertension, managed with atenolol 50 mg daily. Her diastolic blood pressure chronically runs high, typically in the high 80s to low 90s, despite some readings in the normal range at doctor's visits. She also has hypercholesterolemia, treated with rosuvastatin 40 mg, which was noted to be well-controlled on her last blood work. For about a month, she has experienced left mid-back pain after an incident while making her bed. The pain is described as a sharp, intermittent sensation that occurs with certain movements, which was initially a 10/10 in severity and is now a 7/10 at its worst, though it can be bothersome. The pain is localized and does not radiate, and she has found some relief with Motrin. She takes omeprazole for GERD and reports she cannot miss a dose without experiencing terrible heartburn. She has never had an upper endoscopy or colonoscopy. She also takes venlafaxine, which was prescribed for severe hot flashes during chemotherapy. Her family history is significant for a mother with hypertension and hypercholesterolemia at a young age. left mid-back : sharp pain with certain moments, 10 at the beginning, about a 7/10 now. This does not radiate. She was making her bed when she first felt the pain. [facility] Medical History (Updated 06/17/25 @ 10:08 by MAURY Hutson) GERD (gastroesophageal reflux disease) History of breast cancer HLD (hyperlipidemia) HTN (hypertension) Cystitis Surgical History (Updated 06/15/25 @ 15:46 by MAURY Hutson) History of partial mastectomy of right breast Family History Mother HLD (hyperlipidemia) HTN (hypertension) Social History Patient Tobacco Use Status: Never used Tobacco Questionnaire PHQ-9 Over the last 2 weeks, how often have you been bothered by any of the following problems? 1. Little interest or pleasure in doing things: not at all 2. Feeling down, depressed, or hopeless: not at all 3. Trouble falling or staying asleep, or sleeping too much: several days 4. Feeling tired or having little energy: several days 5. Poor appetite or overeating: not at all 6. Feeling bad about yourself - or that you are a failure or have let yourself or your family down: not at all 7. Trouble concentrating on things, such as reading the newspaper or watching television: not at all 8. Moving or speaking so slowly that other people could have noticed. Or the opposite - being so fidgety or restless that you have been moving around a lot more than usual: not at all 9. Thoughts that you would be better off or of hurting yourself in some way: not at all Total score: 2 Depression Screening Interpretation: Negative Depression Screening Done: Yes 61090 - PHQ-9 Billing: Yes Source: Developed by Drs. Yohannes Larose, Kirstie Flor, Lex Ye and colleagues, with an educational lauro from [employer] Thrive Questionnaire Date Thrive assessed: 06/15/25 I am a: Patient What is your living situation today?: I have a steady place to live Within the past 12 months, did the food you bought not last and you didn't have the money to get more?: Never true Within the past 12 months, did you worry whether your food would run out before you got money to buy more?: Never true Do you have trouble paying for medicines?: No Do you have trouble getting transportation to medical appointments?: No Do you have trouble paying your heating and electricity bill?: No Do you have trouble taking care of your child, family member or friend?: No Do you have trouble with day-to-day activities such as bathing, preparing meals, shopping, managing finances, etc.?: No Are you currently unemployed and looking for a job?: No Are you interested in more education?: No Please select the resources that you would like help with: None Currently or been in a relationship where the following occur: No concerns reported THRIVE Score: 0 AUDIT C Alcohol Use Questionnaire (AUDIT-C) 1. How often do you have a drink containing alcohol?: 4 or more times a week 2. How many drinks containing alcohol do you have on a typical day when you are drinking?: 1 or 2 3. How often do you have six or more drinks on one occasion?: Never Total Score: 4 FELICITA-7 AMB Questionnaire FELICITA-7 Date FELICITA - 7 assessed: 06/15/25 Feeling nervous, anxious, or on edge: 1 = Several days Not being able to stop or control worryin = Several days Worrying too much about different things: 1 = Several days Trouble relaxin = Not at all Being so restless that it is hard to sit still: 0 = Not at all Becoming easily annoyed or irritable: 0 = Not at all Feeling afraid as if something awful might happen: 0 = Not at all Total FELICITA-7 score (0-4 normal; 5-9 mild; 10-14 moderate; 15-21 severe): 3 Source: Developed by Drs. Yohannes Larose, Kirstie Flor, Lex Ye and colleagues, with an educational lauro from [employer] FELICITA-7 Assessment Billing FELICITA-7 Assessment Tool: FELICITA-7 Assessment 24744 Review of Systems Const Denies headache(s) Eyes Denies loss of vision ENT Denies vertigo, Denies dizziness, Denies headache(s) and Denies sore throat Card Denies chest pain, Denies leg edema and Denies lightheadedness Resp Denies cough, Denies hemoptysis and Denies wheezing GI Denies abdominal pain, Denies melena, Denies constipation, Reports heartburn, Denies diarrhea and Denies vomiting Denies urinary frequency, Denies dysuria and Denies urinary urgency Musc Reports back pain (left mid-back), Denies arthralgias, Denies joint swelling, Denies numbness and Denies tingling Skin/Breast Denies lesions and Denies rash Neuro Denies Abnormal speech present, Denies behavioral changes, Denies vertigo, Denies dizziness, Denies headache(s), Denies loss of vision, Denies memory loss, Denies numbness and Denies tingling Psych Denies anxiety, Denies behavioral changes, Denies depression, Denies memory loss and Denies panic attacks Cash/Lymph Denies easy bleeding and Denies easy bruising Aller/Immun Denies wheezing Physical exam (Primary Care) Vital Signs: Last Vital Signs Temp 96.4 F L 06/15/25 09:37 Pulse 79 06/15/25 09:37 Resp 18 06/15/25 09:37 BP 150/92 H 06/15/25 09:37 Pulse Ox 100 06/15/25 09:37 Oxygen Delivery Method Room Air 06/15/25 09:37 BMI result Body Mass Index 24.9 Tobacco/Smoking Status: Tobacco use Status Tobacco use date assessed 06/15/25 06/15/25 09:44 Patient Tobacco Use Status Never used Tobacco 06/15/25 09:44 PHQ-9: PHQ-9 Score PHQ-9: Total score 2 06/15/25 13:52 Depression Screening Interpretation: Negative Thrive Assessment: Date of Thrive Assessment Date Thrive assessed 06/15/25 06/15/25 09:44 Currently or been in a relationship where the following occur: No concerns reported Const General: healthy appearing, no acute distress, alert and awake Nutritional Appearance: well nourished Orientation/consciousness: oriented to person, oriented to place and oriented to time HENMT Ears: TM's normal bilaterally General nose exam: Normal nasal mucous membranes and turbinates present Eyes Conjunctivae: conjunctivae normal Sclerae: sclerae normal Pupils: Equal, round and reactive pupils present Neck Neck: Yes no lymphadenopathy and Yes no JVD Thyroid: Thyroid normal Carotids: no bruits Resp Effort & Inspection: normal respiratory effort and not tachypneic Auscultation: no crackles, no rales, no rhonchi and no wheezes Cardio Rate: regular rate Rhythm: regular rhythm Heart sounds: no murmurs and normal S1 and S2 GI Palpation (GI): Soft to palpation, nontender, no hepatomegaly and no splenomegaly Auscultation: normal bowel sounds Skin General skin exam: no rashes or lesions noted and dry skin Neuro General: oriented to person, oriented to place and oriented to time Cranial nerves: Yes Equal, round and reactive pupils present Speech: No Abnormal speech present Gait exam (Neuro): Normal gait present Motor exam (neuro): no tremor noted Extrem Right upper extremity: full ROM Left upper extremity: full ROM Right lower extremity: full ROM; no edema Left lower extremity: full ROM; no edema Psych Mental Status: mental status grossly normal Speech and movement: Normal speech and movement present Affect: normal affect Attitude: cooperative Thought process: Normal thought process present Coding Level of Care Code New Pt Level 4 (86390) Diagnoses Hypertension, unspecified type I10 Hypertension type: unspecified Hyperlipidemia, unspecified hyperlipidemia type E78.5 Hyperlipidemia type: unspecified Midline thoracic back pain, unspecified chronicity M54.6 Back pain location: thoracic back pain Chronicity: unspecified Back pain laterality: midline Gastroesophageal reflux disease, unspecified whether esophagitis present K21.9 Esophagitis presence: esophagitis presence not specified Menopause Z78.0 History of breast cancer Z85.3 Additional Codes PHQ-9 - 20330 - PHQ-9 Billing: Yes ([id number]) FELICITA-7 Assessment Billing - FELICITA-7 Assessment Tool: FELICITA-7 Assessment 28662 ([id number]) Time Spent (min) 38 Assessment & Plan Assessment & Plan (1) HTN (hypertension): Code(s): I10 - Essential (primary) hypertension Category: Medical Qualifiers: Hypertension type: unspecified Qualified Code(s): I10 - Essential (primary) hypertension Plan: The patient's blood pressure is elevated in the office, and she has a history of chronically high diastolic readings at home. Due to the long-standing nature of her high diastolic pressure, a small dose of hydrochlorothiazide will be added to her regimen. The patient is instructed to monitor her blood pressure at home twice daily and bring her machine to the next visit for comparison. A nurse visit is scheduled in four weeks for a blood pressure check, with a provider follow-up in seven weeks. An echocardiogram will be ordered to assess heart function. (2) HLD (hyperlipidemia): Code(s): E78.5 - Hyperlipidemia, unspecified Category: Medical Qualifiers: Hyperlipidemia type: unspecified Qualified Code(s): E78.5 - Hyperlipidemia, unspecified Plan: The patient is on rosuvastatin for hypercholesterolemia. Since her last labs were over eight months ago, new fasting blood work, including a cholesterol panel, will be ordered to monitor her levels. (3) Back pain: Code(s): M54.9 - Dorsalgia, unspecified Category: Medical Qualifiers: Back pain location: thoracic back pain Chronicity: unspecified Back pain laterality: midline Qualified Code(s): M54.6 - Pain in thoracic spine Plan: The patient's left mid-back pain is likely a muscle strain. Will prescribe a lidocaine patch for symptomatic relief. If the pain persists, the patient will call to arrange for a mid-back X-ray to rule out other causes. (4) GERD (gastroesophageal reflux disease): Code(s): K21.9 - Gastro-esophageal reflux disease without esophagitis Category: Medical Qualifiers: Esophagitis presence: esophagitis presence not specified Qualified Code(s): K21.9 - Gastro-esophageal reflux disease without esophagitis Plan: The patient has chronic, symptomatic GERD requiring daily omeprazole. She has been on omeprazole for a long time without ever having an upper endoscopy. Will refer for an EGD; the patient will provide her industrial paramedic's information to facilitate the referral to her established specialist. A refill for omeprazole will be sent to her pharmacy. (5) Menopause: Code(s): Z78.0 - Asymptomatic menopausal state Category: Medical Plan: The patient was prescribed venlafaxine ER 75 mg daily by her previous PCP for severe hot flashes with positive. (6) History of breast cancer: Code(s): Z85.3 - Personal history of malignant neoplasm of breast Category: Medical Plan: Breast cancer 19 years ago, [facility] (Dr. De La Rosa) single mastectomy of right breast, chemo and has been in remission since Orders: Orders Complete Blood Count Auto Diff 06/15/25 E78.5 - Hyperlipidemia, unspecified, I10 - Essential (primary) hypertension, Z76.89 - Persons encountering health services in other specified circumstances TSH reflex Free T4 06/15/25 E78.5 - Hyperlipidemia, unspecified, I10 - Essential (primary) hypertension, Z76.89 - Persons encountering health services in other specified circumstances Comprehensive [place]. Panel Fast 06/15/25 E78.5 - Hyperlipidemia, unspecified, I10 - Essential (primary) hypertension, Z76.89 - Persons encountering health services in other specified circumstances Lipid Panel 06/15/25 E78.5 - Hyperlipidemia, unspecified, I10 - Essential (primary) hypertension, Z76.89 - Persons encountering health services in other specified circumstances UA CC w/rflx Micro + Cult 06/15/25 E78.5 - Hyperlipidemia, unspecified, I10 - Essential (primary) hypertension, Z76.89 - Persons encountering health services in other specified circumstances Vitamin D 25-OH Total 06/15/25 E78.5 - Hyperlipidemia, unspecified, I10 - Essential (primary) hypertension, Z76.89 - Persons encountering health services in other specified circumstances Medications: New lidocaine 5% leave on most painful area for up to 12 hrs 1 patch topical DAILY 30 ea 2RF hydrochlorothiazide 12.5 mg PO DAILY 30 tabs 3RF atenolol 50 mg PO DAILY 90 tabs 3RF omeprazole 20 mg PO DAILY 90 caps 3RF rosuvastatin 40 mg PO DAILY 90 tabs 3RF venlafaxine ER 75 mg PO DAILY 90 caps 3RF
--- OUTSIDE RECORDS SUMMARY | 2025-06-15 10:43 | XMS_ITS | Clinical Summary ---
Author Organization [facility] Address [address] [place] [address] Care Team Providers Care Supervisor Phosphatic Fertilizer Name Role Phone Roger Duran MD Primary Care Provider [phone] Allergies No known active allergies Medications Medication [...] 64 06/10/2024 11:01 AM EDT Temperature 36.4 C (97.6 F) 06/10/2024 11:01 AM EDT Respiratory Rate - - Oxygen Saturation 100% [...] Screening (DEXA Scan) 2021 Influenza Vaccine (#1) 2025 RSV Adult > 60+ Yrs or Pregn ant (1 - 1-dose 75+ series) 11/02/2031 Hepatitis B Vaccines Aged Out No long er eligible based on patient's age to complete this topic RSV Ped < 20 months Aged Out No longe r eligible based on patient's age to complete this topic Care Teams Supervisor Phosphatic Fertilizer Relationship Specialty Start Date End Date Roger Duran MD [address] [place] [address] MADALYN Steele [address] PCP - General Internal Medicine 01/10/18
--- OUTSIDE RECORDS SUMMARY | 2025-06-15 10:43 | XMS_ITS | Clinical Summary ---
Author Organization [facility] Address [address] [place] [address] Phone Care Team Providers Care Admitting Officer Name Role Phone Roger Duran MD Primary Care Provider [phone] Medications omeprazole (PriLOSEC) [address] capsule Take 1 capsule (20 mg total) by mouth 1 (one) time each day. Active doxycycline (VIBRAMYCIN) 100 mg capsule Take 1 capsule (100 mg total) by mouth 2 times daily. 06/07/2015 Active atenoloL (TENORMIN) 50 mg tablet Take 1 tablet (50 mg total) by mouth 1 (one) time each day. Active Encounters Date Type Department Care Team Description 06/10/2025 10:30 AM EDT Office Visit [facility] Hematology Oncology [address] [place] [address] Jacob De La Rosa MD Malignant neoplasm of central portion of right breast in female, estrogen receptor positive (CMS/HCC V24, CMS/HCC V28) (Primary Dx); Encounter for screening mammogram for malignant neoplasm of breast from Last 3 Months Surgical History Surgery Date Site/Laterality Comments MASTECTOMY PROCEDURE:MASTECTOMY TONSILLECTOMY PROCEDURE:TONSILLECTOMY Medical History Medical History Date Comments Breast cancer (CMS/HCC V24, CMS/HCC V28) DX:Breast cancer (HCC) High blood pressure DX:High [...] (143 lb) 06/10/2025 10:33 AM EDT Height 154.9 cm (5' 1 ) 10/20/2021 10:30 AM EST Body Mass Index 27.02 10/20/2021 10:30 AM EST Plan of Treatment Upcoming Encounters Date Type Department Care Team (Late st Contact Info) Description 06/10/2026 10:30 AM EDT Office Visit [facility] Hematology Oncology [address] [place] [address] Jacob De La Rosa MD [address] [place] [address] Health Maintenance Due Date Last Done Comments Breast Cancer Screening 1955 Colorectal Cancer Screening: Colonoscopy 1955 Pneumococcal Vaccine: 50+ Years (1 of 2 - PCV) 11/02/1975 Zoster Vaccines (1 of 2) 02/14/2017 12/20/2016 Cholesterol Screening (Lipid Panel) 07/20/2022 Falls Risk Assessment 07/20/2022 Hepatitis C Screening 07/20/2022 Medicare Annual Wellness Visit 07/20/2022 Social Influencers of Health Screening 07/20/2022 Depression Screening 08/13/2024 COVID-19 Vaccine ( season) 2025 06/12/2022, 05/24/2021, 11/11/2020, Additional history exists Influenza Vaccine (#1) 2025 , 06/11/2023, 06/12/2022, Additional history exists Hypertension/CHF/CAD Annual BMP Blood Test 06/10/2025 DTaP,Tdap,and Td Vaccines (2 - Td or Tdap) 12/20/2026 12/20/2016 RSV Immunization Adult Patients (1 - 1-dose 75+ series) 11/02/2031 Osteoporosis [...] age to complete this topic Meningococcal B Vaccine Aged Out No l onger eligible based on patient's age to complete this topic RSV Immunization Patients Under 20 months Aged Out No longer eligible based on patient's age to complete this topic Varicella Vaccines Aged Out No longer eligible based on patient's age to complete this topic Procedures Procedure Name Priority Date/Time Associated Diagnosis Comments [facility] DEXA AXIAL SKELETON Routine 08/25/2022 10:12 AM EST Encounter for screening for osteoporosis from Last 3 Months or Most Recently Relevant to Health Maintenance Results * [facility] DEXA AXIAL SKELETON (08/25/2022 10:12 AM EST) Anatomical Region Laterality Modality Mammography 08/25/2022 8:59 AM EST Narrative 08/25/2022 10:12 AM EST [facility] Diagnostic Imaging Department [address] [place] [address] [id number] Patient: VAL IGLESIAS D.O.B./Age/Sex: 1955 - 66 - F Unit#: [id number] Location/Status: SPDIMAM/REG CLI [facility] Ordering Physician: LEV DELGADO MD Wendy Dexa Axial Skeleton - 08/25/22 - 950 HISTORY: The patient is a 66-year-old postmenopausal female with clinical concern for metabolic bone disease. FINDINGS: Dual [...] 101% of that of age matched controls. This yields a T-score of -1.1 and a [...] the prior examination of 05/11/2016. There has been a decrease of 1.9% in bone mineral density in the right femur and a decrease of 1.5% in bone mineral density in the left femur. 2. FRAX analysis yields a 10-year probability of major osteoporotic fracture of 16.4% and a 10-year probability of hip fracture of 2.3%. Code 61982 Dictating Physician: ART CARMONA MD Electronically Signed by: ART CARMONA MD Dic Date/Time: 08/25/22 1011 Sign date/Time: 08/25/22 1012 Procedure Note Art Carmona MD - 09/14/2023 [facility] Diagnostic Imaging Department [address] [place] [id number] Patient: VAL IGLESIAS Denise PerezB./Age/Sex: 1955 - 66 - F Unit#: [id number] [facility] Ordering Physician: LEV DELGADO MD [facility] Dexa Axial Skeleton - 08/25/22950 HISTORY: The [...] density of the femurs bilaterally is 0.874 gm/fw2qycni is 87% of that of young normals [...] probability of hip fracture of 2.3%. Code 87415 Dictating Physician: ART CARMONA MD Electronically Signed by: ART CARMONA MD Dic Date/Time: 08/25/22 1011 Sign date/Time: 08/25/22 1012 Lev Delgado MD IMG BI PROCEDURES Final Resu lt from Last 3 Months or Most Recently Relevant to Health Maintenance Insurance [employer] Care Teams Admitting Officer Relationship Specialty Start Date End Date Roger Duran MD [address] [place] [address] PCP - General Internal Medicine 01/15/18
--- OUTSIDE RECORDS SUMMARY | 2025-06-15 10:43 | XMS_ITS | Clinical Summary ---
Author Organization [facility] Address [address] [facility] [address] [place] [address] Phone Care Team Providers Care Pressure Tester Operator Name Role Phone Roger Duran MD Primary Care Provider [phone] Medications omeprazole (PRILOSEC) 20 mg TbEC Dose: 20 MG; Form: Take [address]; Route: PO; Frequency: QD; Directions: Not available; Details: Dispense: Tablet(s); Date: 08/18/2013 4 Active simvastatin (ZOCOR) 40 MG tablet Take 40 mg by mouth nightly. Active atenolol (TENORMIN) 50 MG tablet Take 50 mg by mouth daily. Active letrozole (FEMARA) 2.5 mg tablet Take 2.5 mg by mouth daily. Active venlafaxine (EFFEXOR) 75 MG tablet Take 75 mg by mouth 2 (two) times a day. Active doxycycline hyclate (VIBRAMYCIN) 100 MG capsule Take 1 capsule (100 mg total) by mouth 2 (two) times a day. Do not take this medication when . Take with a full glass of water. Increases sun sensitivity. 28 capsule 0 5 Active Additional Information Patient not taking.Reported on 08/25/2015 predniSONE (DELTASONE) 10 MG tablet Take 1 tablet (10 mg total) by mouth as directed. 4 daily x 4 days,3 daily x 4 days, 2 daily x 4 days,1 daily x 4 days, 1/2 daily x 4 days 42 tablet 0 5 Active Additional Information Patient not taking.Reported on 08/25/2015 clobetasol (TEMOVATE) 0.05 % ointment APPLY TOPICALLY TWICE DAILY TO ITCHY SPOTS. USE FOR 2 WEEKS THEN STOP FOR 2 WEEKS. AVOID EYES AND AREAS WITH THIN SKIN 60 g 7 Active Active Problems Problem Noted Date Diagnosed Date Allergic contact dermatitis 09/01/2015 Contact dermatitis 06/21/2015 Overview (09/03/2017): p-phenylenediamine(PPD),lanolinalcohol(wool alcohol),carbamix,formaldehyde,potassiumdichromate,balsam of [place],1,3-Diphenylguanidine ,propolis,benzophenone-4,cobalt chloride,fragrance mix, disperse blue;methyldibromoglutaronitrile(MDGN); Disperse Yellow ;hydroperoxides of dipenetene(limonene)Patient products:sponge portion of betadine scrub;sponge portion BD EZ scrub;1% dilution BD EZ scrub soap;Protexis neoprene glove Hypercholesterolemia 08/18/2013 Overview (10/02/2014): Hypercholesterolemia Gastroesophageal reflux disease 08/18/2013 Overview (10/02/2014): Acid reflux Hypertensive disorder 08/18/2013 Overview (10/02/2014): Hypertension Breast cancer 08/18/2013 Overview (10/02/2014): Breast cancer Family History Medical History Relation Comments Skin cancer Father Relation Status Comments Father Social History Tobacco Use Types Packs/Day Years Used Date Smoking Tobacco: Never Education Answer Date Recorded Are you interested in more education? Not on gillian e 12/07/2022 Are you concerned about learning? Not on file 12/07/2022 No 12/07/2022 No 12/07/2022 Digital Access Answer Date Recorded No 01/08/2023 No 01/08/2023 No 01/08/2023 Reliable internet access at home? Not on file 01/08/2023 Device with a working camera? Not on file Comments Unknown Sex and Gender Information Value Date Recorded Sex Assigned at Not on file Legal Sex Female 7:15 PM EST Gender Identity Not on file Sexual Orientation Not on file Plan of Treatment Health Maintenance Due Date Last Done Comments BLOOD PRESSURE 1955 LIPID PANEL 1955 DEPRESSION SCREENING 1968 HEPATITIS C SCREENING 1974 PNEUMOCOCCAL VACCINES (50+ years) (1 of 2 - PCV) 11/02/1975 MAMMOGRAM 1996 COLOGUARD 2001 COLONOSCOPY 2001 COLORECTAL CANCER SCREENING 2001 FIT TEST 2001 FOBT 2001 SIGMOIDOSCOPY 2001 VIRTUAL COLONOSCOPY 2001 ZOSTER VACCINES (1 of 2) 02/14/2017 12/20/2016 OSTEOPOROSIS SCREENING INITI AL (ONE-TIME) 2021 INFLUENZA VACCINE (#1) 2025 , 04/18/2019 COVID-19 VACCINE (3 - 2024-2 6 season) 2025 11/11/2020, 10/21/2020 Adult Td,Tdap Booster 12/20/2026 12/20/2016 RSV VACCINE (1 - 1-dose 75+ series) 11/02/2031 SMOKING STATUS SCREENING (On ce After 26 Yrs) Completed 08/25/2015 HEPATITIS A VACCINES Aged Out No long er eligible based on patient's age to complete this topic HIB VACCINES Aged Out No longer eligi ble based on patient's age to complete this topic MENINGOCOCCAL VACCINES (ACWY) Aged Out No longer eligible based on patient's age to complete this topic MENINGOCOCCAL VACCINES (B) Aged Out N o longer eligible based on patient's age to complete this topic Medical Devices Not on file Insurance [facility] Care Teams Pressure Tester Operator Relationship Specialty Start Date End Date Roger Duran MD [address] [place] [address] PCP - General 01/21/15 Additional Source Comments The information contained in this document represents components of the legal health record. It is not the complete legal health record.[facility]
== END 2025-06-15 10:29 | disposition home or self-care (01) ==
LOC: HO.HMCH 09:29
DX: I10 Essential (primary) hypertension (principal); E78.5 Hyperlipidemia, unspecified; M54.6 Pain in thoracic spine; K21.9 Gastro-esophageal reflux disease without esophagitis; Z78.0 Asymptomatic menopausal state; Z85.3 Personal history of malignant neoplasm of breast

== ENCOUNTER → 2025-06-15 09:29 | Outpatient (BNVA) | payer MEDICARE, SELFPAY | PROVIDERS: PCP Internal Medicine | DX: I10 Essential (primary) hypertension (principal); K21.9 Gastro-esophageal reflux disease without esophagitis; E78.5 Hyperlipidemia, unspecified; M54.6 Pain in thoracic spine; Z78.0 Asymptomatic menopausal state; Z85.3 Personal history of malignant neoplasm of breast; Z79.899 Other long term (current) drug therapy | CPT/HCPCS: 96127; 99202 ==

== ENCOUNTER 2025-06-23 08:37 | Outpatient (REF) | payer MEDICARE, SELFPAY ==
--- OUTSIDE RECORDS SUMMARY | 2024-06-10 09:30 | XMS_ITS | Encounter Summary ---
Author Organization [facility] Address [address] [place] [address] Care Team Providers Care Energy Efficiency Specialist Name Role Phone Roger Duran MD Primary Care Provider [phone] Encounter Details Date Type Department Care Team (Late st Contact Info) Description 06/10/2024 10:30 AM EDT Hospital Encounter TH HISTORIC ENCOUNTERS [facility] ONLY Jacob De La Rosa MD [address] [place] [phone] Social History Tobacco Use Types Packs/Day [...] stage II T2N0 invasive ductal breast cancer, ER-positive/KS-negative/Her2-negative, diagnosed in 2006. She underwent mastectomy. She [...] revealed a grade 3 invasive ductal carcinoma, ER-positive/KS-negative, Her2-negative. On 10/08/2006, she underwent a right [...] denied new medications. She was seen by [facility]. A biopsy reportedly was non-diagnostic. A topical steroid provided relief. She went to [place] to see a vmware administrator for a second opinion and they recommended [...] lessened considerably. The rash resolved following her [place] [facility]. She is off Zyrtec. She developed a [...] . 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 She is active and exercises at the [employer]. Review of systems: The remainder of a [...] stage II T2N0 invasive ductal breast cancer, ER-positive/KS-negative/Her2-negative. She underwent mastectomy. She completed adjuvant chemotherapy [...] relieved by prednisone. Repeat patch testing in [place] in 2015 showed multiple work-related chemical allergies and she has avoided exposure by minimizing scrubbing. The rash resolved after [place] [facility]. She is compliant with self exams and left MMGs. There is no strong clinical evidence of recurrent breast cancer. She has osteopenia and takes calcium and vitamin D supplementation. documented in this encounter Plan of Treatment Upcoming Encounters Date Type Department Care Team (Late st Contact Info) Description 06/10/2026 10:30 AM EDT Office Visit [facility] Hematology Oncology [address] [place] [phone] Jacob De La Rosa MD [address] [place] [phone] documented as of this encounter Visit Diagnoses Not on filedocumented in this encounter Care Teams Energy Efficiency Specialist Relationship Specialty Start Date End Date Roger Duran MD [address] [place] [address] PCP - General Internal Medicine 01/15/18 documented as of this encounter
--- OUTSIDE RECORDS SUMMARY | 2025-06-23 08:48 | XMS_ITS | Clinical Summary ---
Author Organization [facility] Address [address] [facility] [address] [place] [address] Phone Care Team Providers Care Petal Shaper Hand Name Role Phone Roger Duran MD Primary Care Provider [phone] Medications omeprazole (PRILOSEC) 20 mg TbEC Dose: [...] dermatitis 06/21/2015 Overview (09/03/2017): p-phenylenediamine(PPD),lanolinalcohol(wool alcohol),carbamix,formaldehyde,potassiumdichromate,balsam of [place],1,3-Diphenylguanidine ,propolis,benzophenone-4,cobalt chloride,fragrance mix, disperse blue;methyldibromoglutaronitrile(MDGN); Disperse Yellow [...] patient's age to complete this topic IPV VACCINES Aged Out No longer eligi ble based on patient's age to complete this topic MENINGOCOCCAL VACCINES (ACWY) Aged Out No longer eligible based on patient's age to complete this topic MENINGOCOCCAL VACCINES (B) Aged Out N o longer eligible based on patient's age to complete this topic Medical Devices Not on file Insurance [facility] Care Teams Petal Shaper Hand Relationship Specialty Start Date End Date Roger Duran MD [address] [place] [address] PCP - General 01/21/15 Additional Source Comments The information contained in this document represents components of the legal health record. It is not the complete legal health record.[facility]
--- OUTSIDE RECORDS SUMMARY | 2025-06-23 08:48 | XMS_ITS | Clinical Summary ---
Author Organization [facility] Address [address] [place] [address] Phone Care Team Providers Care Sat Instructor Name Role Phone Roger Duran MD Primary Care Provider [phone] Medications omeprazole (PriLOSEC) [address] capsule [...] Description 06/10/2025 10:30 AM EDT Office Visit [facility] Hematology Oncology [address] [place] [address] Jacob De La Rosa MD [...] Description 06/10/2026 10:30 AM EDT Office Visit [facility] Hematology Oncology [address] [place] [address] Jacob De La Rosa MD [address] [place] [address] Health Maintenance Due Date Last [...] Procedure Name Priority Date/Time Associated Diagnosis Comments [facility] DEXA AXIAL SKELETON Routine 08/25/2022 10:12 AM EST Encounter for screening for osteoporosis from Last 3 Months or Most Recently Relevant to Health Maintenance Results * [facility] DEXA AXIAL SKELETON (08/25/2022 10:12 AM EST) Anatomical Region Laterality Modality Mammography 08/25/2022 8:59 AM EST Narrative 08/25/2022 10:[address] [facility] Diagnostic Imaging Department [address] [place] [address] [id number] Patient: VAL IGLESIAS D.O.B./Age/Sex: 1955 - 66 - F Unit#: [id number] Location/Status: SPDIMAM/REG CLI Mnemonic[facility] Ordering Physician: LEV DELGADO MD [...] probability of hip fracture of 2.3%. Code 43303 Dictating Physician: ART CARMONA MD Electronically Signed by: ART CARMONA MD Dic Date/Time: 08/25/22 1011 Sign date/Time: 08/25/22 1012 Procedure Note Art Carmona MD - 09/14/2023 [facility] Diagnostic Imaging Department [address] [place] [address] Patient: VAL IGLESIAS Denise PerezB./Age/Sex: 1955 - 66 - F Unit#: [id number] [facility] Ordering Physician: LEV DELGADO MD [facility] Dexa Axial Skeleton - 08/25/[address] HISTORY: The [...] density of the femurs bilaterally is 0.874 gm/qf7tuubx is 87% of that of young normals [...] probability of hip fracture of 2.3%. Code 80904 Dictating Physician: ART CARMONA MD Electronically Signed by: ART CARMONA MD Dic Date/Time: 08/25/22 1011 Sign date/Time: 08/25/22 1012 Lev Delgado MD IMG BI PROCEDURES Final Resu lt from Last 3 Months or Most Recently Relevant to Health Maintenance Insurance [employer] Care Teams Sat Instructor Relationship Specialty Start Date End Date Roger Duran MD [address] [place] [address] PCP - General Internal Medicine 01/15/18
[2025-06-23 08:50] LABS: MANUAL DIFF FLAG NO
--- NOTE | 2025-06-23 08:57 | ECG_ITS ---
Test Reason : HTN Blood Pressure : */* mmHG Vent. Rate : 75 BPM Atrial Rate : 75 BPM P-R Int : 160 ms QRS Dur : 86 ms QT Int : 410 ms P-R-T Axes : 68 -12 26 degrees QTcB Int : 457 ms Normal sinus rhythm Normal ECG No previous ECGs available Referred By: Iván Patterson Electronically Signed By: KYLER BELL MD
[2025-06-23 09:43] LABS: Hematocrit 46.6 % (37.0-47.0); Hemoglobin 15.8 g/dl (12.0-16.0); Imm Gran Abs Auto 0.02 X10*3/uL (0.00-0.03); Imm Gran Pct Auto 0.4 % (0.0-0.4); Lymphocytes Absolute Auto 2.4 X10*3/uL (1.2-4.9); Mean Corpuscular HGB Conc 33.9 g/dl (31.0-35.0); Mean Corpuscular Hemoglobin 32.0 pg (27.0-33.0); Mean Corpuscular Volume 94.5 fL (80.0-98.0); NRBC Abs Auto 0.000 X10*3/uL (0.0-0.012); NRBC Pct Auto 0.0 /100WBC (0.0-0.2); Platelet Count 166 X10*3/uL (160-400); Red Blood Count 4.93 X10*6/uL (4.20-5.50); White Blood Count 5.5 X10*3/uL (4.8-10.8)
[2025-06-23 10:12] LABS: Alanine Aminotransferase 61 U/L (0-31); Albumin Level 4.8 g/dL (3.5-5.0); Alkaline Phosphatase 83 U/L (39-117); Anion Gap 14 (12-20); Aspartate Amino Transferase 42 U/L (5-31); Blood Urea Nitrogen 21 mg/dL (9-16); Calcium 9.6 mg/dL (8.4-10.2); Carbon Dioxide 32 mmol/L (22-29); Chloride 99 mmol/L (96-108); Cholesterol 182 mg/dL (<200); Estimated Glomerular Filt Rate 50; HDL Cholesterol 51 mg/dL (>40); Potassium 3.7 mmol/L (3.3-5.1); Sodium 141 mmol/L (135-145); Total Protein 7.3 g/dL (6.5-8.0); Triglycerides 197 mg/dL (<150)
[2025-06-23 10:19] LABS: Appearance Urine Cloudy; Glucose Urine UA Negative (Negative); PH 5.5 (5.0-9.0); Specific Gravity - Urine 1.020 (1.005-1.025)
== END 2025-06-23 08:38 | disposition home or self-care (01) ==
LOC: HO.LAB 08:37
DX: I10 Essential (primary) hypertension (principal); E78.5 Hyperlipidemia, unspecified; Z76.89 Persons encountering health services in other specified circumstances; Z13.21 Encounter for screening for nutritional disorder
CPT/HCPCS: 36415; 80053; 80061; 81003; 82306; 84443; 85025; 93005

== ENCOUNTER → 2025-06-23 08:57 | Outpatient (BNV) | payer MEDICARE, SELFPAY | PROVIDERS: Visit Provider Internal Medicine Cardiovascular Disease | DX: I10 Essential (primary) hypertension (principal) | CPT/HCPCS: 93010 ==

== ENCOUNTER → 2025-07-16 09:30 | Outpatient (BNVA) | payer MEDICARE, SELFPAY | DX: I10 Essential (primary) hypertension (principal) | CPT/HCPCS: 99211 ==

== ENCOUNTER 2025-08-03 10:57 | Outpatient (AMB) | payer MEDICARE, SELFPAY ==
--- OUTSIDE RECORDS SUMMARY | 2024-06-10 09:30 | XMS_ITS | Encounter Summary ---
Author Organization [facility] Address [address] [place] [address] Care Team Providers Care Bobbin Washer Name Role Phone Roger Duran MD Primary Care Provider [phone] Encounter Details Date Type Department Care Team (Late st Contact Info) Description 06/10/2024 10:30 AM EDT Hospital Encounter TH [facility]OR[facility]NC[facility] ONLY Jacob De La Rosa MD [address] [place] [phone] Social History Tobacco Use Types Packs/Day [...] stage II T2N0 invasive ductal breast cancer, ER-positive/LA-negative/Her2-negative, diagnosed in 2006. She underwent mastectomy. She [...] revealed a grade 3 invasive ductal carcinoma, ER-positive/LA-negative, Her2-negative. On 10/08/2006, she underwent a right [...] denied new medications. She was seen by [facility]. A biopsy reportedly was non-diagnostic. A topical steroid provided relief. She went to [place] to see a game bird farmer for a second opinion and they recommended [...] lessened considerably. The rash resolved following her long-term. She is off Zyrtec. She developed a [...] . 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 She is active and exercises at the [employer]. Review of systems: The remainder of a [...] stage II T2N0 invasive ductal breast cancer, ER-positive/LA-negative/Her2-negative. She underwent mastectomy. She completed adjuvant chemotherapy [...] relieved by prednisone. Repeat patch testing in [place] in 2015 showed multiple work-related chemical allergies and she has avoided exposure by minimizing scrubbing. The rash resolved after long-term. She is compliant with self exams and left MMGs. There is no strong clinical evidence of recurrent breast cancer. She has osteopenia and takes calcium and vitamin D supplementation. documented in this encounter Plan of Treatment Upcoming Encounters Date Type Department Care Team (Late st Contact Info) Description 06/10/2026 10:30 AM EDT Office Visit [facility] Hematology Oncology [address] [place] [phone] Jacob De La Rosa MD [address] [place] [phone] documented as of this encounter Visit Diagnoses Not on filedocumented in this encounter Care Teams Bobbin Washer Relationship Specialty Start Date End Date Roger Duran MD [address] [place] [address] PCP - General Internal Medicine 01/15/18 documented as of this encounter
[2025-08-03 11:10] VITALS: BP 110/78; PULSE 80; RESP 18; TEMP 36.6; O2SAT 98; BMI 24.5
--- NOTE | 2025-08-03 11:10 | A.OFFPC_ITS ---
Vital Signs 08/03/25 11:10 Height 5 ft 4 in Weight 143 lb BMI 24.5 BP 110/78 Blood Pressure Location Lt brachial Position Sitting Respiration 18 Pulse 80 Pulse Source Pulse Oximeter Temp 97.8 F Temp Source Temporal Artery Scan Pulse Oximetry (%) 98 Oxygen Delivery Method Room Air Intake Visit Reasons: htn/hld/GERD Data Input Clerk Required: No Accompanied by: Self / Same As Patient Allergies No Known Allergies Allergy (Verified 08/03/25 11:42) Medication List - Last Reconciled 08/03/25 by MAURY Hutson atenolol 50 mg PO DAILY cholecalciferol (vitamin D3) 25 mcg PO DAILY losartan-hydrochlorothiazide 50-12.5 mg 1 tab PO DAILY omeprazole 20 mg PO DAILY rosuvastatin 40 mg PO DAILY venlafaxine ER 75 mg PO DAILY Tobacco use date assessed: 08/03/25 Fall risk assessment: No Falls in past year Last assessed Fall Risk: 08/03/25 Dental Screening Dental Screen Date: 08/03/25 Did you have a dental visit in the last 12 months?: Yes Did you have a dental problem in the last 6 months where you did not have access to dental care?: No Was dental information given to patient?: Patient has dentist HPI HPI Comments History of Present Illness Details The patient is a 69 year old female presenting for a review of laboratory results and management of chronic conditions. Recent fasting labs revealed a slightly elevated fasting glucose, though she has never been told she is prediabetic. Her triglycerides are also elevated. Her lab work also showed a slightly elevated blood urea nitrogen (BUN) and slightly reduced glomerular filtration rate (GFR) of 50. Liver enzymes were also noted to be slightly elevated. Her LDL cholesterol is 92 mg/dL, and HDL cholesterol is 51 mg/dL. Regarding her diet, the patient reports frequent consumption of hard sugar candies, such as lemon drops, on a daily basis. Her main meals typically consist of meat and a vegetable, with occasional pasta or bread and rare consumption of rice. She drinks wine mixed with club soda. She reports that she rarely takes NSAIDs like ibuprofen. The patient has a follow-up echocardiogram scheduled for next week. She does not have prior lab results for comparison as her previous physician kept paper charts. Health Maintenance The patient is scheduled to have an echocardiogram next week. She will have repeat labs in three months to monitor the previously noted abnormalities. Social History - Alcohol Use: Reports drinking wine mix ed with club soda, and states the amount of wine is small. - Diet: Reports a diet of meat and veget jai, with occasional pasta and bread, and rare rice consumption. - She has a professed sweet tooth and co nsumes hard candies like lemon drops daily. Results - Complete Blood Count (CBC): White bloo d cells, red blood cells, and platelets are within normal limits. - Comprehensive Metabolic Panel (CMP): S odium, potassium, chloride, and carbon dioxide are normal. - Blood urea nitrogen (BUN) is slightly elevated. - Creatinine is normal, with a GFR of 50 mL/min/1.73 m??. - Fasting glucose is slightly elevated. - Liver enzymes are slightly elevated. - Lipid Panel: Total cholesterol is less than 200 mg/dL. - Triglycerides are elevated. - LDL cholesterol is 92 mg/dL. - HDL cholesterol is 51 mg/dL. - Vitamin D: Level is good. - Thyroid function: Normal. - Urinalysis: Normal with no issues note d. [facility] Medical History GERD (gastroesophageal reflux disease) History of breast cancer HLD (hyperlipidemia) HTN (hypertension) Cystitis Surgical History History of partial mastectomy of right breast Family History Mother HLD (hyperlipidemia) HTN (hypertension) Social History Housing: House Patient Tobacco Use Status: Never used Tobacco e-Cigarette/Vaping Use: Never Used service: No Current occupational status: retired Cognitive needs: No Hearing needs: No Vision needs: No Questionnaire Thrive Questionnaire Date Thrive assessed: 08/03/25 I am a: Patient What is your living situation today?: I have a steady place to live Within the past 12 months, did the food you bought not last and you didn't have the money to get more?: Never true Within the past 12 months, did you worry whether your food would run out before you got money to buy more?: Never true Do you have trouble paying for medicines?: No Do you have trouble getting transportation to medical appointments?: No Do you have trouble paying your heating and electricity bill?: No Do you have trouble taking care of your child, family member or friend?: No Do you have trouble with day-to-day activities such as bathing, preparing meals, shopping, managing finances, etc.?: No Are you currently unemployed and looking for a job?: No Are you interested in more education?: No Currently or been in a relationship where the following occur: No concerns reported THRIVE Score: 0 FELICITA-7 AMB Questionnaire FELICITA-7 Date FELICITA - 7 assessed: 06/15/25 Source: Developed by Drs. Yohannes Larose, Kirstie Flor, Lex Ye and colleagues, with an educational lauro from [employer]. Review of Systems Narrative Review of Systems - Cardiovascular: Denies chest pain and heart palpitations. - Respiratory: Denies shortness of breath. - Gastrointestinal: Denies abdominal pain or change in bowel habits. - Neurological: Denies dizziness. Const Denies headache(s) Eyes Denies loss of vision ENT Denies vertigo, Denies dizziness, Denies headache(s) and Denies sore throat Card Denies chest pain, Denies leg edema and Denies lightheadedness Resp Denies cough, Denies hemoptysis and Denies wheezing GI Denies abdominal pain, Denies melena, Denies constipation, Reports heartburn, Denies diarrhea and Denies vomiting Denies urinary frequency, Denies dysuria and Denies urinary urgency Musc Reports back pain (left mid-back), Denies arthralgias, Denies joint swelling, Denies numbness and Denies tingling Skin/Breast Denies lesions and Denies rash Neuro Denies Abnormal speech present, Denies behavioral changes, Denies vertigo, Denies dizziness, Denies headache(s), Denies loss of vision, Denies memory loss, Denies numbness and Denies tingling Psych Denies anxiety, Denies behavioral changes, Denies depression, Denies memory loss and Denies panic attacks Cash/Lymph Denies easy bleeding and Denies easy bruising Aller/Immun Denies wheezing Physical exam (Primary Care) Vital Signs: Last Vital Signs Temp 97.8 F 08/03/25 11:10 Pulse 80 08/03/25 11:10 Resp 18 08/03/25 11:10 BP 110/78 08/03/25 11:10 Pulse Ox 98 08/03/25 11:10 Oxygen Delivery Method Room Air 08/03/25 11:10 BMI result Body Mass Index 24.5 Tobacco/Smoking Status: Tobacco use Status Tobacco use date assessed 08/03/25 08/03/25 11:11 Patient Tobacco Use Status Never used Tobacco 08/03/25 11:11 e-Cigarette/Vaping Use Never Used 08/03/25 11:29 Thrive Assessment: Date of Thrive Assessment Date Thrive assessed 08/03/25 08/03/25 11:11 Currently or been in a relationship where the following occur: No concerns reported Narrative Physical Exam - Vitals: Blood pressure noted to be excellent. - Lungs: Clear to auscultation bilaterally. Const General: healthy appearing, no acute distress, alert and awake Nutritional Appearance: well nourished Orientation/consciousness: oriented to person, oriented to place and oriented to time HENMT Ears: TM's normal bilaterally General nose exam: Normal nasal mucous membranes and turbinates present Eyes Conjunctivae: conjunctivae normal Sclerae: sclerae normal Pupils: Equal, round and reactive pupils present Neck Neck: Yes no lymphadenopathy and Yes no JVD Thyroid: Thyroid normal Carotids: no bruits Resp Effort & Inspection: normal respiratory effort and not tachypneic Auscultation: no crackles, no rales, no rhonchi and no wheezes Cardio Rate: regular rate Rhythm: regular rhythm Heart sounds: S1 normal heart sound present, S2 normal heart sound present, no murmurs and normal S1 and S2 GI Palpation (GI): Soft to palpation, nontender, no hepatomegaly and no splenomegaly Auscultation: normal bowel sounds Skin General skin exam: no rashes or lesions noted and dry skin Neuro General: oriented to person, oriented to place and oriented to time Cranial nerves: Yes Equal, round and reactive pupils present Speech: No Abnormal speech present Gait exam (Neuro): Normal gait present Motor exam (neuro): no tremor noted Extrem Right upper extremity: full ROM Left upper extremity: full ROM Right lower extremity: full ROM; no edema Left lower extremity: full ROM; no edema Psych Mental Status: mental status grossly normal Speech and movement: Normal speech and movement present Affect: normal affect Attitude: cooperative Thought process: Normal thought process present Results Reviewed Results Reviewed: Laboratory Tests 06/23/25 06/23/25 08:44 08:49 WBC 5.5 RBC 4.93 Hgb 15.8 Hct 46.6 MCV 94.5 MCH 32.0 MCHC 33.9 RDW 12.0 Plt Count 166 Sodium 141 Potassium 3.7 Chloride 99 Carbon Dioxide 32 H Anion Gap 14 BUN 21 H Creatinine 1.09 Estimated GFR 50 Fasting Glucose 114 H Calcium 9.6 Total Bilirubin 0.8 AST 42 H ALT 61 H Alkaline Phosphatase 83 Total Protein 7.3 Albumin 4.8 Triglycerides 197 H Cholesterol 182 LDL Cholesterol, Calc 92 HDL Cholesterol 51 25-OH Vitamin D Total 51.5 TSH 1.58 Urine Color Yellow Urine Appearance Cloudy Urine pH 5.5 Ur Specific [place] 1.020 Urine Protein Trace Urine Glucose (UA) Negative Urine Ketones Negative Urine Blood Negative Urine Nitrite Negative Ur Leukocyte Esterase Negative Coding Level of Care Code Est Pt Level 4 (75452) Diagnoses Hypertension, unspecified type I10 Hypertension type: unspecified Mixed hyperlipidemia E78.2 Hyperlipidemia type: mixed hyperlipidemia Gastroesophageal reflux disease, unspecified whether esophagitis present K21.9 Esophagitis presence: esophagitis presence not specified Menopause Z78.0 History of breast cancer Z85.3 IFG (impaired fasting glucose) R73.01 Elevated liver enzymes R74.8 Decreased glomerular filtration rate (GFR) R94.4 Time Spent (min) 38 Assessment & Plan Assessment & Plan (1) HTN (hypertension): Code(s): I10 - Essential (primary) hypertension Category: Medical Qualifiers: Hypertension type: unspecified Qualified Code(s): I10 - Essential (primary) hypertension Plan: Blood pressure 110/78 mm Hg, goal systolic less than 130 mm Hg Reinforced low-salt diet Continue atenolol 50 mg daily, losartan-hydrochlorothiazide 50-12.5 mg daily (2) HLD (hyperlipidemia): Code(s): E78.5 - Hyperlipidemia, unspecified Category: Medical Qualifiers: Hyperlipidemia type: mixed hyperlipidemia Qualified Code(s): E78.2 - Mixed hyperlipidemia Plan: Triglycerides 197, total cholesterol 182, LDL 92, HDL 51.The patient's triglycerides are elevated, which is often triggered by processed foods, sugary items, and carbohydrates. The patient was advised that moderation is singleton and to cut back on sweets. No medication changes will be made at this time. Continue rosuvastatin 40 mg daily. Her lipids will be rechecked in three months (3) GERD (gastroesophageal reflux disease): Code(s): K21.9 - Gastro-esophageal reflux disease without esophagitis Category: Medical Qualifiers: Esophagitis presence: esophagitis presence not specified Qualified Code(s): K21.9 - Gastro-esophageal reflux disease without esophagitis Plan: The patient has chronic, symptomatic GERD requiring daily omeprazole. She has been on omeprazole for a long time without ever having an upper endoscopy. 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 A refill for omeprazole will be sent to her pharmacy. (4) Menopause: Code(s): Z78.0 - Asymptomatic menopausal state Category: Medical Plan: The patient was prescribed venlafaxine ER 75 mg daily by her previous PCP for severe hot flashes with positive. (5) History of breast cancer: Code(s): Z85.3 - Personal history of malignant neoplasm of breast Category: Medical Plan: Breast cancer 19 years ago, [facility] (Dr. De La Rosa) single mastectomy of right breast, chemo and has been in remission since (6) IFG (impaired fasting glucose): Code(s): R73.01 - Impaired fasting glucose Category: Medical Plan: Mildly elevated fasting glucose A1c done in office was 5.5% Encouraged lowering sugar/carbohydrates in her diet We will continue to monitor fasting glucose (7) Elevated liver enzymes: Code(s): R74.8 - Abnormal levels of other serum enzymes Category: Medical Plan: The patient's liver enzymes are slightly elevated, which could be a side effect of her cholesterol medication. The decision was made to continue the cholesterol medication, as the [id number]-nvskmv-yrhutyb analysis favors treatment. Additional liver function tests will be added to the lab panel in three months to further evaluate her liver and ensure no other issues are present (8) Decreased glomerular filtration rate (GFR): Code(s): R94.4 - Abnormal results of kidney function studies Category: Medical Plan: The patient's labs show a slightly elevated BUN, likely due to dehydration from fasting, and a GFR of 50, indicating mildly reduced kidney function. The patient was advised to increase her water intake and to avoid NSAIDs such as ibuprofen and Aleve, as these can affect the kidneys. Her kidney function will be monitored and rechecked in three months Plan Plan Patient was informed and verbally consented to the use of an ambient scribe for clinic note documentation during this visit. 1. Mild Hyperglycemia The patient's fasting glucose was noted to be slightly elevated. She has no prior history of being told she is prediabetic. This finding is likely related to her diet, particularly her daily consumption of hard sugar candies. A vteae-cy-ukwz hemoglobin A1c was obtained via fingerstick to assess her three- month average glucose control. The patient was counseled on reducing her intake of sugary items. 2. Hypertriglyceridemia The patient's triglycerides are elevated, which is often triggered by processed foods, sugary items, and carbohydrates. The patient was advised that moderation is singleton and to cut back on sweets. No medication changes will be made at this time. Her lipids will be rechecked in three months. 3. Elevated Liver Enzymes The patient's liver enzymes are slightly elevated, which could be a side effect of her cholesterol medication. The decision was made to continue the cholesterol medication, as the dvze-ktsubz-eifjyfo analysis favors treatment. Additional liver function tests will be added to the lab panel in three months to further evaluate her liver and ensure no other issues are present. 4. Chronic Kidney Disease, Stage 2 The patient's labs show a slightly elevated BUN, likely due to dehydration from fasting, and a GFR of 50, indicating mildly reduced kidney function. The patient was advised to increase her water intake and to avoid NSAIDs such as ibuprofen and Aleve, as these can affect the kidneys. Her kidney function will be monitored and rechecked in three months. Discussion Notes I reviewed the patient's recent lab results with her in detail. We discussed the slightly elevated fasting glucose and triglycerides, noting the likely connection to her dietary habits, specifically her daily consumption of sugary hard candies. I recommended she reduce her sugar intake, and we proceeded with a tqotw-td-kszd A1c test for a more comprehensive assessment. We also addressed the mildly elevated BUN and slightly reduced GFR, which I explained could be related to hydration status; I advised increasing water intake and avoiding NSAIDs like ibuprofen to protect her kidneys. Regarding the slightly elevated liver enzymes, I explained this could be a side effect of her cholesterol medication and that the benefit of the medication currently outweighs this minor elevation. I informed her that her LDL cholesterol is well-controlled. I outlined the plan to recheck her labs in three months, including some additional tests to more closely evaluate her liver function. Patient Instructions - Try to cut back on sweets and sugary foods, especially the hard candies you eat daily. - Make sure to drink plenty of water throughout the day. - Avoid taking ytix-zcn-zyfpnsv pain relievers like ibuprofen (Advil) and naproxen (Aleve), as they can be hard on your kidneys. - We will need to recheck your blood work in about three months to see how things are going. - Remember to go for your scheduled echocardiogram next week. - We checked your A1c today with a finger prick, which gives us an idea of your average blood sugar over the last few months. Orders: Orders AMB Hemoglobin A1c 08/03/25 Z13.9 - Encounter for screening, unspecified Hepatitis A,B,C Profile 3 Months E78.5 - Hyperlipidemia, unspecified, I10 - Essential (primary) hypertension, K21.9 - Gastro-esophageal reflux disease without esophagitis, R73.01 - Impaired fasting glucose, R74.8 - Abnormal levels of other serum enzymes UA CC w/rflx Micro + Cult 3 Months E78.5 - Hyperlipidemia, unspecified, I10 - Essential (primary) hypertension, K21.9 - Gastro-esophageal reflux disease without esophagitis, R73.01 - Impaired fasting glucose, R74.8 - Abnormal levels of other serum enzymes TSH reflex Free T4 3 Months E78.5 - Hyperlipidemia, unspecified, I10 - Essential (primary) hypertension, K21.9 - Gastro-esophageal reflux disease without esophagitis, R73.01 - Impaired fasting glucose, R74.8 - Abnormal levels of other serum enzymes Lipid Panel 3 Months E78.5 - Hyperlipidemia, unspecified, I10 - Essential (primary) hypertension, K21.9 - Gastro-esophageal reflux disease without esop hagitis, R73.01 - Impaired fasting glucose, R74.8 - Abnormal levels of other serum enzymes Comprehensive [place]. Panel Fast 3 Months E78.5 - Hyperlipidemia, unspecified, I10 - Essential (primary) hypertension, K21.9 - Gastro-esophageal reflux disease without esophagitis, R73.01 - Impaired fasting glucose, R74.8 - Abnormal levels of other serum enzymes Prothrombin Time INR 3 Months R74.8 - Abnormal levels of other serum enzymes Smooth Muscle Antibody 3 Months R74.8 - Abnormal levels of other serum enzymes Complete Blood Count Auto Diff 3 Months E78.5 - Hyperlipidemia, unspecified, I10 - Essential (primary) hypertension, K21.9 - Gastro-esophageal reflux disease without esophagitis, R73.01 - Impaired fasting glucose, R74.8 - Abnormal levels of other serum enzymes Vitamin D 25-OH Total 3 Months E78.5 - Hyperlipidemia, unspecified, I10 - Essential (primary) hypertension, K21.9 - Gastro-esophageal reflux disease without esophagitis, R73.01 - Impaired fasting glucose, R74.8 - Abnormal levels of other serum enzymes Ferritin 3 Months E78.5 - Hyperlipidemia, unspecified, I10 - Essential (primary) hypertension, K21.9 - Gastro-esophageal reflux disease without esophagitis, R73.01 - Impaired fasting glucose, R74.8 - Abnormal levels of other serum enzymes IRON PROFILE 3 Months R74.8 - Abnormal levels of other serum enzymes Referrals Gastroenterology Referral K21.9 - Gastro-esophageal reflux disease without esophagitis
--- OUTSIDE RECORDS SUMMARY | 2025-08-03 13:47 | XMS_ITS | Clinical Summary ---
Author Organization [facility] Address [address] [place] [id number] Phone Care Team Providers Care Learning Program Manager Name Role Phone Roger Duran MD Primary Care Provider [phone] Medications omeprazole (PRILOSEC) 20 mg TbEC Dose: [...] topic Medical Devices Not on file Insurance [facility] Care Teams Learning Program Manager Relationship Specialty Start Date End Date Roger Duran MD [address] [place] [id number] PCP - General 01/21/15 Additional Source Comments The information contained in this document represents components of the legal health record. It is not the complete legal health record.[facility]
--- OUTSIDE RECORDS SUMMARY | 2025-08-03 13:47 | XMS_ITS | Clinical Summary ---
Author Organization [facility] Address [address] [place] [address] Phone Care Team Providers Care Public Relations Intern Name Role Phone Roger Duran MD Primary Care Provider [phone] Medications omeprazole (PriLOSEC) [address] capsule [...] Description 06/10/2025 10:30 AM EDT Office Visit [facility] Hematology Oncology [address] [place] [address] Jacob De La Rosa MD [...] on file Sexual Orientation Not on file Last Filed Vital Signs [...] Description 06/10/2026 10:30 AM EDT Office Visit [facility] Hematology Oncology [address] [place] [address] Jacob De La Rosa MD [address] [place] [address] Health Maintenance Due Date Last [...] Procedure Name Priority Date/Time Associated Diagnosis Comments [facility] DEXA AXIAL SKELETON Routine 08/25/2022 10:12 AM EST Encounter for screening for osteoporosis from Last 3 Months or Most Recently Relevant to Health Maintenance Results * [facility] DEXA AXIAL SKELETON (08/25/2022 10:12 AM EST) Anatomical Region Laterality Modality Mammography 08/25/2022 8:59 AM EST Narrative 08/25/2022 10:12 AM EST [facility] Diagnostic Imaging Department [address] [place] [address] [id number] Patient: VAL IGLESIAS./Age/Sex: 1955 - 66 - F Unit#: [id number] Location/Status: SPDIMAM/REG CLI [facility] Ordering Physician: LEV DELGADO MD [...] probability of hip fracture of 2.3%. Code 56527 Dictating Physician: ART CARMONA MD Electronically Signed by: ART CARMONA MD Dic Date/Time: 08/25/22 1011 Sign date/Time: 08/25/22 1012 Procedure Note Art Carmona MD - 09/14/2023 [facility] Diagnostic Imaging Department [address] [place] [id number] Patient: VAL IGLESIAS Denise PerezB./Age/Sex: 1955 - 66 - F Unit#: [id number] [facility] Ordering Physician: LEV DELGADO MD [facility] Dexa Axial Skeleton - 08/25/22950 HISTORY: The [...] density of the femurs bilaterally is 0.874 gm/wb0unquw is 87% of that of young normals [...] probability of hip fracture of 2.3%. Code 06214 Dictating Physician: ART CARMONA MD Electronically Signed by: ART CARMONA MD Dic Date/Time: 08/25/22 1011 Sign date/Time: 08/25/22 1012 Lev Delgado MD IMG BI PROCEDURES Final Resu lt from Last 3 Months or Most Recently Relevant to Health Maintenance Insurance [employer] Care Teams Public Relations Intern Relationship Specialty Start Date End Date Roger Duran MD [address] [place] [address] PCP - General Internal Medicine 01/15/18
--- OUTSIDE RECORDS SUMMARY | 2025-08-03 13:47 | XMS_ITS | Clinical Summary ---
Author Organization [facility] Prior to 01/10/[address] [place] [id number] Care Team Providers Care Container Crane Operator Name Role Phone Roger Duran MD Primary Care Provider [phone] Allergies No known active allergies Medications Medication [...] age to complete this topic Care Teams Container Crane Operator Relationship Specialty Start Date End Date Roger Duran MD [address] [place] [id number] PCP - General Internal Medicine 01/10/18
== END 2025-08-03 12:18 | disposition home or self-care (01) ==
LOC: HO.HMCH 10:58
DX: I10 Essential (primary) hypertension (principal); E78.2 Mixed hyperlipidemia; K21.9 Gastro-esophageal reflux disease without esophagitis; Z78.0 Asymptomatic menopausal state; Z85.3 Personal history of malignant neoplasm of breast; R73.01 Impaired fasting glucose; R74.8 Abnormal levels of other serum enzymes; R94.4 Abnormal results of kidney function studies

== ENCOUNTER → 2025-08-03 10:57 | Outpatient (BNVA) | payer MEDICARE, SELFPAY | PROVIDERS: PCP Internal Medicine | DX: I10 Essential (primary) hypertension (principal); K21.9 Gastro-esophageal reflux disease without esophagitis; E78.2 Mixed hyperlipidemia; R94.4 Abnormal results of kidney function studies; R73.01 Impaired fasting glucose; R74.8 Abnormal levels of other serum enzymes; Z78.0 Asymptomatic menopausal state; Z85.3 Personal history of malignant neoplasm of breast | CPT/HCPCS: 99212 ==

== ENCOUNTER → 2025-08-11 12:50 | Outpatient (REF) | payer MEDICARE, SELFPAY ==
--- OUTSIDE RECORDS SUMMARY | 2024-06-10 09:30 | XMS_ITS | Encounter Summary ---
Author Organization [facility] Address [address] [place] [address] Care Team Providers Care Muck Farmer Name Role Phone Roger Duran MD Primary Care Provider [phone] Encounter Details Date Type Department Care Team (Late st Contact Info) Description 06/10/2024 10:30 AM EDT Hospital Encounter TH [facility] ONLY Jacob De La Rosa MD [address] [place] [phone] Social History Tobacco Use Types Packs/Day [...] stage II T2N0 invasive ductal breast cancer, ER-positive/OR-negative/Her2-negative, diagnosed in 2006. She underwent mastectomy. She [...] revealed a grade 3 invasive ductal carcinoma, ER-positive/OR-negative, Her2-negative. On 10/08/2006, she underwent a right [...] denied new medications. She was seen by [facility]. A biopsy reportedly was non-diagnostic. A topical steroid provided relief. She went to [place] to see a granulator for a second opinion and they recommended [...] lessened considerably. The rash resolved following her halfway. She is off Zyrtec. She developed a [...] . 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 She is active and exercises at the [employer]. Review of systems: The remainder of a [...] stage II T2N0 invasive ductal breast cancer, ER-positive/OR-negative/Her2-negative. She underwent mastectomy. She completed adjuvant chemotherapy [...] relieved by prednisone. Repeat patch testing in [place] in 2015 showed multiple work-related chemical allergies and she has avoided exposure by minimizing scrubbing. The rash resolved after halfway. She is compliant with self exams and left MMGs. There is no strong clinical evidence of recurrent breast cancer. She has osteopenia and takes calcium and vitamin D supplementation. documented in this encounter Plan of Treatment Upcoming Encounters Date Type Department Care Team (Late st Contact Info) Description 06/10/2026 10:30 AM EDT Office Visit [facility] Hematology Oncology [address] [place] [phone] Jacob De La Rosa MD [address] [place] [phone] documented as of this encounter Visit Diagnoses Not on filedocumented in this encounter Care Teams Muck Farmer Relationship Specialty Start Date End Date Roger Duran MD [address] [place] [address] PCP - General Internal Medicine 01/15/18 documented as of this encounter
--- NOTE | 2025-08-11 12:56 | CA_ITS ---
Transthoracic Echocardiogram Patient (Last, First, Middle): Val Iglesias, Gender: Female Date of : 1955 Age: 69 Procedure Date: 08/11/2025 Procedure Type: Transthoracic Echocardiogram Location: OP Height: 162.56 cm Weight: 64.86 kg BSA: 1.70 m2 Heart Rate: bpm BP: 110 / 78 mmHg Features Reporter: TO Referring MD: Iván WELDONP-C Symptoms: I10 - Essential (primary) hypertension Study Quality: Adequate ECG Rhythm: Sinus Conclusions: - The left ventricular systolic function is normal. The calculated ejection fraction is 59% by biplane method. - No obvious valvular pathology seen on this study. Findings Left Ventricle Normal left ventricular cavity size. There is normal left ventricular wall thickness. The left ventricular systolic function is normal. The calculated ejection fraction is 59% by biplane method. There is no evidence of regional wall motion abnormalities. Diastolic function is normal for age. Right Ventricle Normal right ventricular cavity size and systolic function. Atria Both atria are normal in size. Aortic Valve There is a normal trileaflet aortic valve. There is no aortic valve stenosis. There is no aortic valve regurgitation. Mitral Valve The mitral valve appears normal. There is no mitral valve regurgitation. There is no mitral valve stenosis. Pulmonic Valve The pulmonic valve is likely normal. Tricuspid Valve There is trace tricuspid valve regurgitation. There is no evidence of pulmonary hypertension. Great Vessels The asc aorta and aortic arch are normal in size. Venous The inferior vena cava is normal in size and collapses greater than 50% with inspiration. Pericardium/Pleural There is no evidence of pericardial effusion. Prior Study Comparison No prior study available for comparison. Recommendations, Care & Conclusions No obvious valvular pathology seen on this study. Measurements 2D Linear Measurements IVSd: 0.68 0.6-0.9/0.6-1.0 cm LVIDd: 4.27 3.9-5.3/4.2-5.9 cm LVIDd Index: 2.51 2.4-3.2/2.2-3.1 cm/m2 LVIDs: 2.55 2.0-3.6 cm LVPWd: 0.79 0.7-1.1 cm LA Diam: 3.60 2.7-3.8/3.0-4.0 cm LAIDs Index: 2.12 1.5-2.3 cm/m2 LV Mass: 114.89 67-162/88-224 g LV Mass Index: 67.58 43-95/49-115 g/m2 LVOT Diam: 2.00 3.0+(-)1.3 cm 2D Systolic Function EF 4C: 57.30 >55% EF 2C: 59.20 >55% EF BiP: 59.30 >55% Mitral Valve MV Pk E: 0.73 MV PK A: 0.65 MV Decel Time: 210.00 E/A: 1.10 E'Lateral: 8.81 E'Medial: 5.77 E/E' Med: 12.70 E/E' Lat: 8.30 PHT: 62.00 MVA PHT: 3.55 [address]let: 3.48 Aortic Valve AoV Pk Chris: 1.12 AoV Mn Chris: 0.70 AoV VTI: 0.22 AoV Pk Grad: 5.00 Aov Mn Grad: 2.00 SAMANTHA Cont.VTI: 3.28 LVOT LVOT Pk Chris: 1.12 LVOT Mn Chris: 0.69 LVOT VTI: 0.23 LVOT Pk Grad: 5.00 LVOT Mn Grad: 2.00 LVOT Diam: 2.00 LVOT Area: 3.14 Diastolic Function MV Pk E: 0.73 MV Pk A: 0.65 E/A: 1.10 E'Medial: 5.77 E/E' Med: 12.70 E' Laterial: 8.81 E/E' Lat: 8.30 Right Ventricle TAPSE (mm): 22.30 TVS' Chris: 10.00 Tricuspid Valve TR Pk Chris: 1.62 TR Pk Grad: 10.00 RA Press: 3.00 RVSP: 13.00 Great Vessels Aorta Sinus of Valsalva: 2.71 2.0-3.[address] Ridge: 2.26 1.7-3.4 cm Ao Asc: 3.40 2.1-3.4 cm Ao Arch: 2.80 Pulmonary Veins Pulm Vein S/D 1.50 Updated in Other Vendor System with Status of Final Lux De La Garza MD electronically signed on 08/13/2025 12:09:43 PM with status of Final
--- OUTSIDE RECORDS SUMMARY | 2025-08-11 16:42 | XMS_ITS | Clinical Summary ---
Author Organization [facility] Prior to 01/10/[address] [place] [id number] Care Team Providers Care New Accounts Representative Name Role Phone Roger Duran MD Primary Care Provider [phone] Allergies No known active allergies Medications Medication [...] age to complete this topic Care Teams New Accounts Representative Relationship Specialty Start Date End Date Roger Duran MD [address] [place] [id number] PCP - General Internal Medicine 01/10/18
--- OUTSIDE RECORDS SUMMARY | 2025-08-11 16:42 | XMS_ITS | Clinical Summary ---
Author Organization [facility] Address [address] [place] [address] Phone Care Team Providers Care Alumni Relations Manager Name Role Phone Roger Duran MD Primary Care Provider [phone] Medications omeprazole (PriLOSEC) [address] capsule [...] Description 06/10/2025 10:30 AM EDT Office Visit [facility] Hematology Oncology [address] [place] [address] Jacob De La Rosa MD [...] Description 06/10/2026 10:30 AM EDT Office Visit [facility] Hematology Oncology [address] [place] [address] Jacob De La Rosa MD [address] [place] [address] Health Maintenance Due Date Last [...] Procedure Name Priority Date/Time Associated Diagnosis Comments [facility] DEXA AXIAL SKELETON Routine 08/25/2022 10:12 AM EST Encounter for screening for osteoporosis from Last 3 Months or Most Recently Relevant to Health Maintenance Results * [facility] DEXA AXIAL SKELETON (08/25/2022 10:12 AM EST) Anatomical Region Laterality Modality Mammography 08/25/2022 8:59 AM EST Narrative 08/25/2022 10:12 AM EST [facility] Diagnostic Imaging Department [address] [place] [address] [id number] Patient: VAL IGLESIAS./Age/Sex: 1955 - 66 - F Unit#: [id number] Location/Status: SPDIMAM/REG CLI Mnemonic[facility] Ordering Physician: LEV DELGADO MD Wendy [...] probability of hip fracture of 2.3%. Code 56810 Dictating Physician: ART CARMONA MD Electronically Signed by: ART CARMONA MD Dic Date/Time: 08/25/22 1011 Sign date/Time: 08/25/22 1012 Procedure Note Art Carmona MD - 09/14/2023 [facility] Diagnostic Imaging Department [address] [place] [address] Patient: VAL IGLESIAS Denise PerezB./Age/Sex: 1955 - 66 - F Unit#: [id number] [facility] Ordering Physician: LEV DELGADO MD [facility] Dexa Axial Skeleton - 08/25/22950 HISTORY: [...] density of the femurs bilaterally is 0.874 gm/[id number] is 87% of that of young normals [...] probability of hip fracture of 2.3%. Code 75963 Dictating Physician: ART CARMONA MD Electronically Signed by: ART CARMONA MD Dic Date/Time: 08/25/22 1011 Sign date/Time: 08/25/22 1012 Lev Delgado MD IMG BI PROCEDURES Final Resu lt from Last 3 Months or Most Recently Relevant to Health Maintenance Insurance [employer] Care Teams Alumni Relations Manager Relationship Specialty Start Date End Date Roger Duran MD [address] [place] [address] PCP - General Internal Medicine 01/15/18
--- OUTSIDE RECORDS SUMMARY | 2025-08-11 16:42 | XMS_ITS | Clinical Summary ---
Author Organization [facility] Address [address] [place] [address] Phone Care Team Providers Care Emery Wheel Worker Name Role Phone Roger Duran MD Primary Care Provider [phone] Medications omeprazole (PRILOSEC) 20 mg TbEC Dose: [...] topic Medical Devices Not on file Insurance [facility] Care Teams Emery Wheel Worker Relationship Specialty Start Date End Date Roger Duran MD [address] [place] [id number] PCP - General 01/21/15 Additional Source Comments The information contained in this document represents components of the legal health record. It is not the complete legal health record.[facility]
== END ==
LOC: HO.CARD 12:50
DX: I10 Essential (primary) hypertension (principal)
CPT/HCPCS: 93306

== ENCOUNTER → 2025-08-11 12:56 | Outpatient (BNV) | payer MEDICARE, SELFPAY | PROVIDERS: Visit Provider Internal Medicine | DX: I10 Essential (primary) hypertension (principal) | CPT/HCPCS: 93306 ==